=== PATIENT | female | born 1975 | race Caucasian/White ===

== ENCOUNTER 2018-02-18 14:19 | Inpatient (IN) | payer OTHER ==
[~2018-02-18] VITALS: Ht 152.4 cm; Wt 72.3 kg
--- NOTE | 2018-02-18 15:54 | RADIOLOGY REPORT ---
EXAMINATION: XR ANKLE, LEFT. XR FOOT, LEFT. CLINICAL INFORMATION: Pain status post surgery COMPARISON: None TECHNIQUE: 3 views of the left ankle. 3 views of the left foot. FINDINGS: Evidence of recent fibular plate and screw removal. No residual fracture line is evident. Soft tissue swelling and skin derrick overlie the lateral soft tissues. Ankle mortise appears preserved. There is a single screw traversing the medial malleolus. No residual fracture line is evident. No acute or degenerative findings of the left foot. No erosions. IMPRESSION: No suspicious osseous abnormalities.
[2018-02-18 15:56] LABS: ABSOLUTE BASOPHIL COUNT 0 /CUMM (0.0-0.2); ABSOLUTE EOSINOPHIL COUNT 0.2 /CUMM (0.0-0.7); ABSOLUTE GRANULOCYTE CT 7.8 /CUMM (1.4-6.5); ABSOLUTE LYMPH COUNT 2.3 /CUMM (1.2-3.4); ABSOLUTE MONOCYTE COUNT 0.4 /CUMM (0.10-0.60); BASOPHIL % 0.4 % (0.0-2.0); EOSINOPHIL % 1.7 % (0-5); HEMATOCRIT 37.5 % (37-47); MEAN CORPUSCULAR HGB 29.1 PG (27.0-31.0); MEAN CORPUSCULAR HGB CONC 33.3 G/DL (33.0-37.0); MEAN CORPUSCULAR VOLUME 87.4 FL (81.0-99.0); MEAN PLATELET VOLUME 9.1 FL (7.4-10.4); PLATELET COUNT 326 /CUMM (130-400); RBC DISTRIBUTION WIDTH 15.1 % (11.5-14.5); RED BLOOD CELL CT 4.29 /CUMM (4.20-5.40); WHITE BLOOD CELL COUNT 10.7 /CUMM (4.8-10.8)
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
[2018-02-18] MEDS ORDERED: GABAPENTIN600 M1 PO ×2 (18:48)
[2018-02-18] MEDS ORDERED: CYCLOBENZAPRINE10 M1 PO (18:49)
[2018-02-18] MEDS ORDERED: PANTOPRAZOLE SO40 M1 PO (18:49)
[2018-02-18] MEDS ORDERED: CLONAZEPAM0.5 M2 PO (18:49)
[2018-02-18] MEDS ORDERED: AMITRIPTYLINE100 M2 PO (18:50)
[2018-02-18] MEDS ORDERED: ZOLPIDEM TARTRA10 M1 PO (18:50)
[2018-02-18] MEDS ORDERED: REQUIP0.5 M1 PO (18:50)
[2018-02-18] MEDS ORDERED: MECLIZINE HCL25 MG PO (18:51)
[2018-02-18] MEDS ORDERED: CYMBALTA60 M1 PO (18:51)
[2018-02-18] MEDS ORDERED: GLUCOPHAGE1000 M1 PO (18:52)
[2018-02-18] MEDS ORDERED: ZOFRAN ODT8 M1 PO (18:52)
[2018-02-18] MEDS ORDERED: INSULIN SC (18:53)
[2018-02-18 22:56] VITALS: BP 120/66
--- NOTE | 2018-02-18 23:13 | History & Physical ---
Dallas Cruz 02/18/18 2313: General Information and HPI MD Statement: I have seen and personally examined URIEL TABARES and documented this H&P. The patient is a 42 year old F who presented with a patient stated chief complaint of [Left foot pain and infection post op 2 weeks]. Source of Information: patient Exam Limitations: no limitations History of Present Illness: Ms. Tabares is a 42-year-old female with past medical history of type II DM, hypertension, depression, fibromyalgia (no longer on pain medication), asthma, IBS, diverticulitis, endometriosis s/p hysterectomy, history of DVT (no longer on anticoagulation), left ankle fracture with surgical repair and hardware 3 years ago, presents to the ED with pain and swelling of her left ankle. She recently had hardware removed 2-1/[address] Velásquez, due to chronic pain in the ankle. She underwent removal of the plate and several screws and tolerated the procedure well. Since the procedure, she has been moving around women's shelters since being unable to work due to her ankle and had a brief hospitalization due to metabolic derangement after alcoholic binge drinking. Over this period she has been having serous discharge and more recently thicker yellow and purulent discharge from the wound site. She says she forgot to mention that she is allergic to dissolvable sutures. She denies any fever but does report chills, diaphoresis, diarrhea. She is on Zofran for chronic nausea. 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 Allergies/Medications Allergies: Coded Allergies: Iodinated Contrast- Oral and IV Dye (Severe, SHORT OF BREATH 02/18/18) erythromycin base (From ERYTHROCIN) (Intermediate, HIVES 02/18/18) ketorolac (From TORADOL) (Intermediate, FELT FUNNY 02/18/18) Antihistamines - Alkylamine (SOB, HALLUCINATIONS, DYSPNEA 02/18/18) Antihistamines - Ethanolamine (SOB, DYSPNEA, HALLUCINATIONS 02/18/18) Antihistamines - Ethylenediamine (SOB, DYSPNEA, HALLUCINATIONS 02/18/18) Antihistamines - Piperazine (SOB, DYSPNEA, HALLUCINATIONS 02/18/18) Antihistamines - Piperidine (SOB, DYSPNEA, HALLUCINATIONS 02/18/18) Penicillins (HIVES 02/18/18) Sulfa (Sulfonamide Antibiotics) (Intermediate, STOMACH UPSET 02/18/18) meperidine (From DEMEROL) (Intermediate, VOMITING 02/18/18) Past History Travel History Traveled to [place] past 21 day No Medical History Blood Transfusion Hx: Yes Neurological: migraine, vertigo EENT: allergies Cardiovascular: hypertension Respiratory: asthma Gastrointestinal: colitis, diverticulitis, GERD Hepatic: NONE Renal: NONE Musculoskeletal: fibromyalgia, osteoarthritis, rheumatoid arthritis, sciatica Psychiatric: anxiety, depression, PTSD Endocrine: diabetes Blood Disorders: DVT, LYME Cancer(s): NONE PATIENT SUPPORT ASSOCIATE/Reproductive: endometriosis History of MRSA: No History of VRE: No History of CDIFF: No Isolation History: Standard Surgical History Surgical History: RECENT ANKLE SURGERY Past Family/Social History Psychosocial History Where do you live? Other Smoking Status: Never Smoked ETOH Use: denies use Review of Systems Review of Systems Constitutional: Reports: chills, diaphoresis. Denies: fever. EENTM: Reports: no symptoms. Cardiovascular: Reports: no symptoms. Respiratory: Reports: no symptoms. GI: Reports: diarrhea, nausea. Genitourinary: Reports: no symptoms. Musculoskeletal: Reports: no symptoms. Skin: Reports: no symptoms. Neurological/Psychological: Reports: anxiety. Hematologic/Endocrine: Reports: no symptoms. Immunologic/Allergic: Reports: no symptoms. All Other Systems: Reviewed and Negative Exam & Diagnostic Data Last 24 Hrs of Vital Signs/I&O Vital Signs Date Time Temp Pulse Resp B/P B/P Pulse O2 O2 Flow FiO2 Mean Ox Delivery Rate 02/18 2256 98.8 96 18 120/66 97 02/18 2235 99.2 111 18 123/69 97 02/18 2020 97.2 96 18 105/60 97 02/18 1821 98.6 102 18 121/80 97 02/18 1504 97.6 108 16 101/71 97 Room Air Intake & Output 02/19 0800 07/ 0000 02/18 1600 Intake Total Output Total Balance Patient 158 lb Weight Weight Bed scale Measurement Method Physical Exam General Appearance Alert, Oriented X3, Cooperative, No Acute Distress Skin No Rashes Skin Temp/Moisture Exam: Warm/Dry Sepsis Skin Exam (color): Normal for Ethnicity HEENT Atraumatic, PERRLA, EOMI Neck Supple Cardiovascular Normal S1, Normal S2 Lungs Clear to Auscultation Abdomen Normal Bowel Sounds, Soft Neurological Normal Speech Extremities Normal Pulses Assessment/Plan Assessment: Ms. Tabares is a 42-year-old female with past medical history of type II DM, hypertension, depression, fibromyalgia (no longer on pain medication), asthma, IBS, diverticulitis, endometriosis s/p hysterectomy, history of DVT (no longer on anticoagulation), left ankle fracture with surgical repair and hardware 3 years ago, presents to the ED with pain and swelling of her left ankle. Afebrile, normal WBC, ESR 73, CRP >15, ankle is red, warm, and tender. Problem List: 1. Septic arthritis of the left ankle 2. Chronic Conditions (DM2, HTN, Depression, Anxiety, FM) 3. Hx of coagulopathy Plan - Admit to general medicine - Hold off antibiotics for now - ID and orthopedic consults - Blood cx - Pain pathway - Left LE doppler - Continue home medications - DVT PPx As Ranked By This Provider Problem List: 1. Wound infection after surgery 2. Pain 3. Depressed affect Core Measures/Misc (05/03) Acute Coronary Syndrome ACS Diagnosis: No Congestive Heart Failure Congestive Heart Failure Diagnosis No Cerebrovascular Accident CVA/TIA Diagnosis: No VTE (View Protocol) VTE Risk Factors Age>40 No Mechanical VTE Prophylaxis d/t N/A MechProphylax Ordered No VTE Pharm Prophylaxis d/t NA PharmProphylax ordered Sepsis (View protocol) Sepsis Present: No If YES complete Sepsis Event Note If YES complete Sepsis Event Note Jayson Rivera MD 02/19/18 0201: Core Measures/Misc (05/03) Sepsis (View protocol) If YES complete Sepsis Event Note If YES complete Sepsis Event Note Attending MD Review Statement Attending Statement Attending MD Statement: examined this patient, discuss w/resident/PA/APPLICATIONS PACKAGER, agreed w/resident/PA/APPLICATIONS PACKAGER, reviewed EMR data (avail) Attending Assessment/Plan: 42F PMH T2DM, depression, had left ankle fracture with surgical repair with hardware 3 years ago, most of the hardware removed 2.[address] Velásquez in [place] due to chronic pain in the ankle, and per that orthopedist, misplacement of the hardware, presents today with 1 day of severe left ankle pain, swelling, and erythema. Was hospitalized at [facility] last weekend for malnutrition and metabolic derangement. 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 She has a depressed affect, denies SI. She noted serosanguinous discharge from her surgical wound after the surgery which she kept clean and dry as she could, but has noticed a change in the color and character of the discharge, becoming thicker, and first yellow, then brown. She denies any systemic symptoms. She has a history of DVT but is not on anti-coagulation. Afebrile, normal WBC, ESR 73, CRP >15, ankle is red, warm, and tender. Concerning for septic joint. 1. Septic arthritis of the left ankle 2. History of left ankle surgery Plan - Admit to general medicine - Hold off antibiotics for now - ID and orthopedic consults - Blood cultures - Pain control - Left LE doppler - Continue home medications - DVT PPx Avani LAM,Vanesa 02/19/18 0220: General Information and HPI MD Statement: I have seen and personally examined SANIAURIEL and documented this H&P. The patient is a 42 year old F who presented with a patient stated chief complaint of [ankle pain]. Allergies/Medications Home Med list Amitriptyline HCl 100 MG TABLET 1 TAB PO QHS MENTAL HEALTH/SLEEP (Reported) Clonazepam 0.5 MG TABLET 1 TAB PO BID ANXIETY (Reported) Cyclobenzaprine HCl 10 MG TABLET 1 TAB PO TID MUSCLE SPASMS (Reported) Dicyclomine HCl 20 MG TABLET 1 TAB PO Q6P PRN GI (Reported) Duloxetine HCl (Cymbalta) 60 MG CAPSULE.DR 1 CAP PO QPM MENTAL HEALTH/NERVE PAIN (Reported) Gabapentin 600 MG TABLET 1,200 MG PO QAM NERVE PAIN (Reported) Gabapentin 600 MG TABLET 2,400 MG PO QPM NERVE PAIN (Reported) Meclizine HCl 25 MG TABLET 1 TAB PO AD PRN DIZZINESS (Reported) Metformin HCl (Glucophage) 1,000 MG TABLET 1 TAB PO BID DM (Reported) Ondansetron (Zofran Odt) 8 MG TAB.RAPDIS 1 TAB PO Q6H PRN N/V (Reported) place on top of the tongue where it will dissolve, then swallow Pantoprazole Sodium 40 MG TABLET.DR 1 TAB PO BID GI (Reported) Ropinirole Hydrochloride (Requip) 0.5 MG TABLET 1 TAB PO QHS RLS (Reported) Zolpidem Tartrate 10 MG TABLET 1 TAB PO QHS SLEEP (Reported) Core Measures/Misc (05/03) Sepsis (View protocol) If YES complete Sepsis Event Note If YES complete Sepsis Event Note Resident Review Statement Resident Statement: examined this patient, discussed with university internship, agreed with university internship, reviewed EMR data (avail), discussed with nursing Other Findings: Ms. Tabares is a 42-year-old lady with PMH significant for DVT, Lyme disease, sinus tachycardia with PVCs, fibromyalgia, NIDDM, HTN, colitis and depression presents with Pain around her ankle. Patient had an ankle surgery done 3 years ago and had hardware placed. The hardware was removed 2 weeks ago, and the patient tolerated the surgery well. She was in her usual state of health until Thursday when she started having pain in her left ankle, but got better and she was able to ambulate and perform her daily activities but yesterday after returning from grocery shopping the pain got extremely worse when she was barely able to walk because of the pain. She also mentions clear discharge from the surgical site which later turned yellow brown since yesterday. She did have some drainage from the surgical site right after the surgery but resolved on its own. Endorses calf tenderness. She also reports really bad diarrhea starting Thursday and resolved on its on by Thursday. She also has chronic abdominal pain and nausea and takes Zofran as needed at home. MAXIMUM TEMPERATURE of 99.1. Vitals on admission were temperature of 97.6, heart rate 108, respiratory rate 16, BP 101/71 and O2 sats and 7% on room air. She had no WBC white count and lactic acid level was 1.7 but had an ESR of 73 and CRP of 3.4. Ankle and foot x-ray were negative for any acute pathology. On exam she had extreme tenderness to palpation of right foot and ankle. Pain with active and Passive movement of left ankle. Surgical site was intact with no drainage noted. Problem List; 1. Left ankle Septic Arthritis 2. Chronic medical conditions - We'll admit the patient to general medicine floor - Patient received a dose of clindamycin in the ER. Hold off on antibiotics for now. - ID consult in a.m. - Ortho consultation - Follow-up blood cultures - Pain management - LLE Ext doppler to r/o DVT. - Continue home medications. DVT Prophylaxis; ALPS Patient is Full code.
--- NOTE | 2018-02-19 02:03 | Admission Certification ---
Admission Certification Certification Statement - As attending physician, I certify that at the time of - admission, based on clinical presentation, severity of - symptoms, need for further diagnostic testing and - therapeutic interventions, and risk of adverse outcomes - without in-hospital treatment, in my clinical assessment, - this patient requires an acute hospital stay for a minimum - of two nights or longer. I have also considered psychsocial - factors such as support system, advanced age, financial - issues, cognitive issues, and failed out-patient treatments, - past re-admission history, safety of patient, and lack of - compliance as applicable. Specific rationale supporting this admission is: Likely septic arthritis of the left ankle with hardware in place
[2018-02-19] MEDS ORDERED: DICYCLOMINE HCL20 M1 PO (02:07)
[2018-02-19 06:20] VITALS: BP 118/60
--- NOTE | 2018-02-19 08:00 | PN- Housestaff ---
See Addendum Subjective Follow-up For: POSSIBLE SEPTIC ARTHRITIS LEFT ANKLE Complaints: pain scale (0-10), 7-8/10 Subjective: Patient reports pain in left ankle at site of surgery. She states she thinks her derrick need to be removed. She has an appointment with Dr. Hurtado in [place] on February 22 for follow up post op (hardware removal February 02). She is currently living in a senior care and states she doesn't know how she will get to that appointment and wants derrick removed here, pain meds, and antibiotics. She states she was recently released from [facility] for electrolyte replacement and hydration after drinking alcohol and having vomiting. She states her left ankle started draining sero sanguinous fluid that became yellow in nature two days ago. She states temp at home has been 99.1. She also reports calf pain with squeezing. She has been doing her own wound care consisting of a gauze pad changing PRN. Denies chills, n/v/d, chest pain, SOB. Review of Systems Constitutional: Reports: see HPI. Objective Last 24 Hrs of Vital Signs/I&O Vital Signs Date Time Temp Pulse Resp B/P B/P Pulse O2 O2 Flow FiO2 Mean Ox Delivery Rate 02/19 0620 98.4 87 18 118/60 95 Room Air 02/18 2256 98.8 96 18 120/66 97 07/05 2235 99.2 111 18 123/69 97 07/ 2020 97.2 96 18 105/60 97 07/05 1821 98.6 102 18 121/80 97 07/05 1504 97.6 108 16 101/71 97 Room Air Intake & Output 02/19 1600 02/19 0800 07 0000 Intake Total 0 Output Total 950 Balance -950 Intake, Oral 0 Number 0 Bowel Movements Output, Urine 950 Patient 158 lb Weight Weight Bed scale Measurement Method Physical Exam General Appearance: Alert, Oriented X3, Cooperative, No Acute Distress, obese Skin: No Rashes, No Breakdown Skin Temp/Moisture Exam: Warm/Dry HEENT: Atraumatic, PERRLA Neck: Supple Cardiovascular: Regular Rate, Normal S1, Normal S2 Lungs: Clear to Auscultation, Normal Air Movement Abdomen: Normal Bowel Sounds, Soft, No Tenderness, obese Neurological: Normal Tone, Sensation Intact Extremities: Normal Pulses, Left lateral malleolus with surgical scar-derrick in place with minimal erythema. Not warm to touch. DP 2+. sensory intact left foot. Limited ROM 2/2 surgery. Vascular: Normal Pulses, Pulses Symmetrical Assessment/Plan Assessment: 42 y.o female PMH type 2 DM, HTN, depression, fibromyalgia, asthma, IBS, h/o DVT (no longer on anticoagulation, left ankle fx s/p surgical repair and revision most recently February 02 who was admitted for possible septic arthritis of left ankle. #Possible septic arthritis left ankle-this is unlikely given that she is afebrile/no leukocytosis/ and the surgical site is intact and free from drainage. I spoke to Dr. Interiano who performed the surgery. He relayed he saw the patient on February 11 and the wound looked healed. He had no concern for infection at that time. He decided to leave the derrick for an additional 10days just to ensure closure and she has a -continue off abx for now. Will re assess for need of abx post MRI. -ID consulted: recommends MRI; evaluation for osteomyelitis -ortho consulted: agrees surgical site looks healed and free from infection. Will not remove derrick as patient needs to keep her follow up appointment with her primary surgeon on February 22. #Chronic illness -continue medications -holding Gapapentin until large dose confirmed with her pharmacy #Social issues -Will need case management to assist with coordination to senior care/if bed still available -Patient making very specific narcotic medication requests and dosages DVT prophylaxis: alps/lovenox Problem List: 1. Pain Pain Ratin Pain Location: left ankle Pain Goal: Pain 4 or less Pain Plan: see a/p Tomorrow's Labs & Rationales: cbc, bep
--- NOTE | 2018-02-19 08:56 | Cons- Orthopedic ---
General Information and HPI Consulting Request Date of Consult: 02/19/18 Requested By: Sammy Vides MD History of Present Illness: 42 yr old female with left ankle pain and swelling. patient had hardware removed from her left ankle 2 1/[address] Hurtado in [place]. Patient has appt on thursday with dr hurtado for staple removal. has clindamycin at home. ankle was swollen and red over a day ago with some drainage. Patient in a detention did not contact Dr Hamlin office just presented to ER. Patient was started on IV antibiotics yesterday and has resolved the swelling. Patient is afebrile and normal wbc. Allergies/Medications Allergies: Coded Allergies: Iodinated Contrast- Oral and IV Dye (Severe, SHORT OF BREATH 02/18/18) erythromycin base (From ERYTHROCIN) (Intermediate, HIVES 02/18/18) ketorolac (From TORADOL) (Intermediate, FELT FUNNY 02/18/18) Antihistamines - Alkylamine (SOB, HALLUCINATIONS, DYSPNEA 02/18/18) Antihistamines - Ethanolamine (SOB, DYSPNEA, HALLUCINATIONS 02/18/18) Antihistamines - Ethylenediamine (SOB, DYSPNEA, HALLUCINATIONS 02/18/18) Antihistamines - Piperazine (SOB, DYSPNEA, HALLUCINATIONS 02/18/18) Antihistamines - Piperidine (SOB, DYSPNEA, HALLUCINATIONS 02/18/18) Penicillins (HIVES 02/18/18) Sulfa (Sulfonamide Antibiotics) (Intermediate, STOMACH UPSET 02/18/18) meperidine (From DEMEROL) (Intermediate, VOMITING 02/18/18) Home Med List: Amitriptyline HCl 100 MG TABLET 1 TAB PO QHS MENTAL HEALTH/SLEEP (Reported) Clonazepam 0.5 MG TABLET 1 TAB PO BID ANXIETY (Reported) Cyclobenzaprine HCl 10 MG TABLET 1 TAB PO TID MUSCLE SPASMS (Reported) Dicyclomine HCl 20 MG TABLET 1 TAB PO Q6P PRN GI (Reported) Duloxetine HCl (Cymbalta) 60 MG CAPSULE. 1 CAP PO QPM MENTAL HEALTH/NERVE PAIN (Reported) Gabapentin 600 MG TABLET 1,200 MG PO QAM NERVE PAIN (Reported) Gabapentin 600 MG TABLET 2,400 MG PO QPM NERVE PAIN (Reported) Meclizine HCl 25 MG TABLET 1 TAB PO AD PRN DIZZINESS (Reported) Metformin HCl (Glucophage) 1,000 MG TABLET 1 TAB PO BID DM (Reported) Ondansetron (Zofran Odt) 8 MG TAB.RAPDIS 1 TAB PO Q6H PRN N/V (Reported) place on top of the tongue where it will dissolve, then swallow Pantoprazole Sodium 40 MG TABLET.DR 1 TAB PO BID GI (Reported) Ropinirole Hydrochloride (Requip) 0.5 MG TABLET 1 TAB PO QHS RLS (Reported) Zolpidem Tartrate 10 MG TABLET 1 TAB PO QHS SLEEP (Reported) Past History Medical History Blood Transfusion Hx: Yes Neurological: migraine, vertigo EENT: allergies Cardiovascular: hypertension Respiratory: asthma Gastrointestinal: colitis, diverticulitis, GERD Hepatic: NONE Renal: NONE Musculoskeletal: fibromyalgia, osteoarthritis, rheumatoid arthritis, sciatica Psychiatric: anxiety, depression, PTSD Endocrine: diabetes Blood Disorders: DVT, LYME Cancer(s): NONE [employer]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 Other Smoking Status: Never Smoked ETOH Use: denies use Review of Systems Review of Systems: see chart Exam & Diagnostic Data Vital Signs and I&O Vital Signs Date Time Temp Pulse Resp B/P B/P Pulse O2 O2 Flow FiO2 Mean Ox Delivery Rate 02/19 0620 98.4 87 18 118/60 95 Room Air 02/18 2256 98.8 96 18 120/66 97 /05 2235 99.2 111 18 123/69 97 / 2020 97.2 96 18 105/60 97 / 1821 98.6 102 18 121/80 97 /05 1504 97.6 108 16 101/71 97 Room Air Intake & Output 02/19 1600 02/19 0800 / 0000 02/18 1600 02/18 0800 02/18 0000 Intake Total 0 Output Total 950 Balance -950 Intake, Oral 0 Number 0 Bowel Movements Output, Urine 950 Patient 158 lb Weight Weight Bed scale Measurement Method Physical Exam: mild edema over surgical wound. there is no erythema and no discharge from surgical wound site. 10 degrees of dorsi flexion and 40 degrees of volar flexion. foot is n/v intact. WBC is normal and patient is afebrile. Assessment/Plan Assessment/Plan s/p left ankle hardware removal 2 1/2 weeks post-op -discussed with dr nolan. Patient has appt on thursday to see dr hurtado for staple removal. Would leave derrick in until her f/u appt. -There is no evidence of septic joint. There appears to be no active signs of surgical infection. -Continuing care should contact patients social/rn case manager hospice at detention facility to arrange for her to get to her post-op appt with dr hurtado on thursday. Consult Acknowledgment - Thank you for your consult request.
[2018-02-19 08:58] LABS: ABSOLUTE BASOPHIL COUNT 0 /CUMM (0.0-0.2); ABSOLUTE EOSINOPHIL COUNT 0.2 /CUMM (0.0-0.7); ABSOLUTE GRANULOCYTE CT 3.1 /CUMM (1.4-6.5); ABSOLUTE LYMPH COUNT 3.4 /CUMM (1.2-3.4); ABSOLUTE MONOCYTE COUNT 0.4 /CUMM (0.10-0.60); BASOPHIL % 0.6 % (0.0-2.0); EOSINOPHIL % 3.4 % (0-5); GRANULOCYTE % 43.1 % (42.2-75.2); HEMATOCRIT 33.1 % (37-47); MEAN CORPUSCULAR HGB 29.1 PG (27.0-31.0); MEAN CORPUSCULAR HGB CONC 32.8 G/DL (33.0-37.0); MEAN CORPUSCULAR VOLUME 88.5 FL (81.0-99.0); MEAN PLATELET VOLUME 9.3 FL (7.4-10.4); PLATELET COUNT 253 /CUMM (130-400); RBC DISTRIBUTION WIDTH 15.2 % (11.5-14.5); RED BLOOD CELL CT 3.74 /CUMM (4.20-5.40); WHITE BLOOD CELL COUNT 7.3 /CUMM (4.8-10.8)
--- NOTE | 2018-02-19 11:10 | Cons- Infect Disease ---
General Information and HPI Consulting Request Date of Consult: 02/19/18 Requested By: Sammy Vides MD Reason for Consult: Left ankle inflammation Source of Information: patient History of Present Illness: This is a 42-year-old woman with a history of diabetes, hypertension, asthma, DVT, no longer on anticoagulation, irritable bowel syndrome, fibromyalgia, endometriosis and depression, status post ORIF of the left ankle 3 years prior to admission after trauma, with chronic pain secondary to what she was told was poor positioning of the hardware, status post removal of most of the hardware from her left ankle (with a medial malleolar screw left in place) 2 1/2 weeks prior to admission by her orthopedist, Dr. Velásquez, at [facility], with intermittent drainage since then, initially serosanguineous but, more recently, yellow to brown, admitted on February 18 after presenting to the emergency room with increasing pain in the ankle, associated with erythema, edema and increasing drainage, with no associated fevers or chills. On admission she was afebrile. Laboratory data revealed a white blood cell count of 10.7, ESR 73, BUN/ creatinine 10 and 0.6, with normal liver enzymes. X-ray of the left foot and ankle revealed soft tissue swelling overlying the lateral soft tissues and a single screw traversing the medial malleolus, with no bony erosions. She was given 1 dose of IV Clindamycin and then followed off antibiotics. She has remained afebrile since admission but continues to complain of pain in the left ankle. Allergies/Medications Allergies: Coded Allergies: Iodinated Contrast- Oral and IV Dye (Severe, SHORT OF BREATH 02/18/18) erythromycin base (From ERYTHROCIN) (Intermediate, HIVES 02/18/18) ketorolac (From TORADOL) (Intermediate, FELT FUNNY 02/18/18) Antihistamines - Alkylamine (SOB, HALLUCINATIONS, DYSPNEA 02/18/18) Antihistamines - Ethanolamine (SOB, DYSPNEA, HALLUCINATIONS 02/18/18) Antihistamines - Ethylenediamine (SOB, DYSPNEA, HALLUCINATIONS 02/18/18) Antihistamines - Piperazine (SOB, DYSPNEA, HALLUCINATIONS 02/18/18) Antihistamines - Piperidine (SOB, DYSPNEA, HALLUCINATIONS 02/18/18) Penicillins (HIVES 02/18/18) Sulfa (Sulfonamide Antibiotics) (Intermediate, STOMACH UPSET 02/18/18) meperidine (From DEMEROL) (Intermediate, VOMITING 02/18/18) Home Med List: Amitriptyline HCl 100 MG TABLET 1 TAB PO QHS MENTAL HEALTH/SLEEP (Reported) Clonazepam 0.5 MG TABLET 1 TAB PO BID ANXIETY (Reported) Cyclobenzaprine HCl 10 MG TABLET 1 TAB PO TID MUSCLE SPASMS (Reported) Dicyclomine HCl 20 MG TABLET 1 TAB PO Q6P PRN GI (Reported) Duloxetine HCl (Cymbalta) 60 MG CAPSULE.DR 1 CAP PO QPM MENTAL HEALTH/NERVE PAIN (Reported) Gabapentin 600 MG TABLET 1,200 MG PO QAM NERVE PAIN (Reported) Gabapentin 600 MG TABLET 2,400 MG PO QPM NERVE PAIN (Reported) Meclizine HCl 25 MG TABLET 1 TAB PO AD PRN DIZZINESS (Reported) Metformin HCl (Glucophage) 1,000 MG TABLET 1 TAB PO BID DM (Reported) Ondansetron (Zofran Odt) 8 MG TAB.RAPDIS 1 TAB PO Q6H PRN N/V (Reported) place on top of the tongue where it will dissolve, then swallow Pantoprazole Sodium 40 MG TABLET.DR 1 TAB PO BID GI (Reported) Ropinirole Hydrochloride (Requip) 0.5 MG TABLET 1 TAB PO QHS RLS (Reported) Zolpidem Tartrate 10 MG TABLET 1 TAB PO QHS SLEEP (Reported) Past History Travel History Traveled to [place] past 21 day No Medical History Blood Transfusion Hx: Yes Neurological: migraine, vertigo EENT: allergies Cardiovascular: hypertension Respiratory: asthma Gastrointestinal: colitis, diverticulitis, GERD, irritable bowel syndrome Hepatic: NONE Renal: NONE Musculoskeletal: fibromyalgia, osteoarthritis, rheumatoid arthritis, sciatica Psychiatric: anxiety, depression, PTSD Endocrine: diabetes Blood Disorders: DVT Cancer(s): NONE 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 Other Smoking Status: Never Smoked ETOH Use: denies use Review of Systems Review of Systems All Other Systems: Reviewed and Negative Exam & Diagnostic Data Last 24 Hrs of Vital Signs/I&O Vital Signs Date Time Temp Pulse Resp B/P B/P Pulse O2 O2 Flow FiO2 Mean Ox Delivery Rate 07/06 06 98.4 87 18 118/60 95 Room Air 02/18 2256 98.8 96 18 120/66 97 02/18 2235 99.2 111 18 123/69 97 02/18 2020 97.2 96 18 105/60 97 02/18 1821 98.6 102 18 121/80 97 07/05 1504 97.6 108 16 101/71 97 Room Air Intake & Output 02/19 1600 02/19 0800 02/19 0000 Intake Total 0 Output Total 950 Balance -950 Intake, Oral 0 Number 0 Bowel Movements Output, Urine 950 Patient 158 lb Weight Weight Bed scale Measurement Method Physical Exam Other Physical Findings: She is awake and alert in no acute distress. She is afebrile. Skin reveals no rash. HEENT exam is negative. Neck is supple with no adenopathy. Lungs are clear. Heart regular rhythm with no murmur. Abdomen is soft, nontender with positive bowel sounds. Back no CVA tenderness. Extremities left ankle swelling , with mild erythema along the lateral incision, with derrick in place, with no active drainage; warm and tender to touch. Neuro is without focality. Last 24 Hours of Lab Results: Laboratory Tests 02/19 02/18 0705 1811 Chemistry Sodium (137 - 145 mmol/L) 143 Potassium (3.5 - 5.1 mmol/L) 3.8 Chloride (98 - 107 mmol/L) 100 Carbon Dioxide (22 - 30 mmol/L) 33 H Anion Gap (5 - 16) 9 BUN (7 - 17 mg/dL) 10 Creatinine (0.5 - 1.0 mg/dL) 0.6 Estimated GFR (>60 ml/min) > 60 BUN/Creatinine Ratio (7 - 25 %) 16.7 Lactic Acid Cancelled Hematology CBC w Diff NO MAN DIFF REQ WBC (4.8 - 10.8 /CUMM) 7.3 RBC (4.20 - 5.40 /CUMM) 3.74 L Hgb (12.0 - 16.0 G/DL) 10.9 L Hct (37 - 47 %) 33.1 L MCV (81.0 - 99.0 FL) 88.5 MCH (27.0 - 31.0 PG) 29.1 MCHC (33.0 - 37.0 G/DL) 32.8 L RDW (11.5 - 14.5 %) 15.2 H Plt Count (130 - 400 /CUMM) 253 MPV (7.4 - 10.4 FL) 9.3 Gran % (42.2 - 75.2 %) 43.1 Lymphocytes % (20.5 - 51.1 %) 46.8 Monocytes % (1.7 - 9.3 %) 6.1 Eosinophils % (0 - 5 %) 3.4 Basophils % (0.0 - 2.0 %) 0.6 Absolute Granulocytes (1.4 - 6.5 /CUMM) 3.1 Absolute Lymphocytes (1.2 - 3.4 /CUMM) 3.4 Absolute Monocytes (0.10 - 0.60 /CUMM) 0.4 Absolute Eosinophils (0.0 - 0.7 /CUMM) 0.2 Absolute Basophils (0.0 - 0.2 /CUMM) 0 07 1532 Chemistry Sodium (137 - 145 mmol/L) 141 Potassium (3.5 - 5.1 mmol/L) 3.9 Chloride (98 - 107 mmol/L) 96 L Carbon Dioxide (22 - 30 mmol/L) 32 H Anion Gap (5 - 16) 13 BUN (7 - 17 mg/dL) 10 Creatinine (0.5 - 1.0 mg/dL) 0.6 Estimated GFR (>60 ml/min) > 60 BUN/Creatinine Ratio (7 - 25 %) 16.7 Glucose (65 - 99 mg/dL) 191 H Lactic Acid (0.7 - 2.1 mmol/L) 1.7 Calcium (8.4 - 10.2 mg/dL) 9.4 Total Bilirubin (0.2 - 1.3 mg/dL) 0.2 AST (14 - 36 U/L) 27 ALT (9 - 52 U/L) 32 Alkaline Phosphatase (<127 U/L) 125 C-Reactive Prot, Quant (<1.0 mg/dL) 3.4 H Total Protein (6.3 - 8.2 g/dL) 7.3 Albumin (3.5 - 5.0 g/dL) 4.1 Globulin (1.9 - 4.2 gm/dL) 3.2 Albumin/Globulin Ratio (1.1 - 2.2 %) 1.3 Hematology CBC w Diff NO MAN DIFF REQ WBC (4.8 - 10.8 /CUMM) 10.7 RBC (4.20 - 5.40 /CUMM) 4.29 Hgb (12.0 - 16.0 G/DL) 12.5 Hct (37 - 47 %) 37.5 MCV (81.0 - 99.0 FL) 87.4 MCH (27.0 - 31.0 PG) 29.1 MCHC (33.0 - 37.0 G/DL) 33.3 RDW (11.5 - 14.5 %) 15.1 H Plt Count (130 - 400 /CUMM) 326 MPV (7.4 - 10.4 FL) 9.1 Gran % (42.2 - 75.2 %) 73.0 Lymphocytes % (20.5 - 51.1 %) 21.6 Monocytes % (1.7 - 9.3 %) 3.3 Eosinophils % (0 - 5 %) 1.7 Basophils % (0.0 - 2.0 %) 0.4 Absolute Granulocytes (1.4 - 6.5 /CUMM) 7.8 H Absolute Lymphocytes (1.2 - 3.4 /CUMM) 2.3 Absolute Monocytes (0.10 - 0.60 /CUMM) 0.4 Absolute Eosinophils (0.0 - 0.7 /CUMM) 0.2 Absolute Basophils (0.0 - 0.2 /CUMM) 0 ESR Westergren (0 - 20 MM) 73 H Last 24 Hours of Kenan Results: Blood cultures 2 February 18 negative Diagnostic Data Recent Imaging Findings: X-ray of the left foot and ankle February 18 reveals soft tissue swelling overlying the lateral soft tissues and a single screw traversing the medial malleolus, with no bony erosions. Assessment/Plan Assessment/Plan Impression: This is a 42-year-old woman status post ORIF of the left ankle 3 years prior to admission after trauma, status post removal of most of the hardware from her left ankle (with a medial malleolar screw left in place) 2 1/2 weeks prior to admission because of chronic pain admitted on February 18 with intermittent drainage over the past 2 weeks, with increasing pain, swelling and erythema of the ankle over the past several days, found to be afebrile with a mild leukocytosis and an elevated ESR. She does appear to have inflammation involving the lateral aspect of her left ankle, raising concern for infection and, given her recent surgery, the possibility of underlying osteomyelitis must be considered. She will need further evaluation for this, but she should be followed off antibiotics as, if osteomyelitis is confirmed on imaging, she will require a bone biopsy, which will need to be done off antibiotics. As her surgery was done at [facility] it may be preferable to further evaluate her there so that her orthopedist can be involved. Suggestion: 1. Would consider transfer to [facility] to the care of her orthopedist 2. Will need an MRI of the left ankle (which could be done at [facility] if she is transferred there) 3. Would follow off antibiotics pending above Consult Acknowledgment - Thank you for your consult request.
--- NOTE | 2018-02-19 12:11 | ULTRASOUND REPORT ---
EXAMINATION: LEFT LOWER EXTREMITY DEEP VENOUS ULTRASOUND CLINICAL INFORMATION: Left lower extremity pain and swelling. History of recent surgery. COMPARISON: None. TECHNIQUE: Duplex Doppler imaging with compression maneuvers were performed of the left lower extremity deep venous system. FINDINGS: The visualized common femoral, femoral and popliteal veins demonstrate normal compressibility and color flow without evidence of venous thrombosis. Visualized portions of the calf veins demonstrate normal color fill-in suggesting patency. There is no evidence of a Hidalgo's cyst. IMPRESSION: No evidence of deep venous thrombosis involving the left lower extremity.
[2018-02-19 14:30] VITALS: BP 110/70
--- NOTE | 2018-02-19 17:27 | MRI REPORT ---
EXAMINATION: MR ANKLE WITH CONTRAST, LEFT CLINICAL INFORMATION: 42-year-old female with redness and pain of left ankle. Evaluate for osteomyelitis. COMPARISON: Ankle and foot radiographs from 02/18/2018. TECHNIQUE: MR images of the left ankle were obtained on a high-field 1.5 Zohra magnet prior to and following intravenous administration of 7.5 mL of Gadavist contrast material. FINDINGS: The Achilles tendon is normal. The peroneal, flexor, extensor and tibialis tendons are intact. No evidence of tendon tear or tenosynovitis. Magnetic susceptibility artifact is produced by the medial malleolar fixation screw. Lateral fixation plate and screws have been removed from the distal fibula. The posterior tibiofibular syndesmotic ligament is intact. There appears to be focal heterotopic ossification of the anteroinferior tibiofibular ligament. There is mild thickening of the anterior talofibular ligament without evidence of focal ligament disruption. The calcaneofibular and posterior talofibular ligaments are unremarkable. The deltoid ligaments are suboptimally evaluated due to the metallic artifact. The talar dome is well-positioned within the ankle mortise. Small ankle joint effusion is present. There appears to be a small, 0.3 cm long focus of osteochondral injury of the calcaneus at the posterior facet of the subtalar joint. Small focus of cystlike signal change is seen within the mid calcaneus at the angle of Gissane. There is a very small, subacute fracture of the cuboid at the margin of the calcaneocuboid joint with mild subarticular marrow edema in this region. Bones have normal alignment at the Chopart and Lisfranc joints. Plantar aponeurosis is intact. The fat planes of the sinus tarsi and tarsal canal are maintained. 0.6 x 1.7 x 1.2 cm fluid collection overlies the lateral malleolus. There is edema of subcutaneous tissues of the lateral ankle and dorsolateral foot. The subcutaneous tissues exhibit a reticular pattern of enhancement after contrast administration. These findings are suggestive of cellulitis. Mild edema is present within the fibular malleolus. The fatty marrow signal intensity within the distal fibula is generally well preserved. No focal osseous erosion or periostitis. No intramedullary abscess. IMPRESSION: 1. No MR imaging evidence of osteomyelitis or intramedullary abscess. 2. A 0.6 x 1.7 x 1.2 cm fluid collection overlies the lateral malleolus. This could represent a postoperative fluid collection or small abscess. 3. There is edema and reticular pattern of contrast enhancement of subcutaneous tissues of the lateral ankle and dorsolateral foot, consistent with cellulitis. 4. Small area of osteochondral injury of the posterior facet of the subtalar joint. Also, there is a very small cuboid fracture at the margin of the calcaneocuboid joint.
[2018-02-19 22:27] VITALS: BP 100/70
[2018-02-20 06:35] VITALS: BP 100/70
--- NOTE | 2018-02-20 11:23 | PN- Housestaff ---
Laly Gorman 02/20/18 1118: Subjective Follow-up For: Yanira ankle cellulitis Complaints: pain and swelling in left ankle Subjective: Patient seen and exaimned at bedside. C/o pain and swelling in the left ankle, patient states she has a headache because nobody will give her her gabapentin. Patient states she needs to go home today because she lives in a homeless intermediate and fearful that they will give her bed away, states "im going home today one way or another". Review of Systems Constitutional: Denies: chills, diaphoresis, fever. Cardiovascular: Denies: chest pain, palpitations. Respiratory: Denies: cough, orthopnea, short of breath. Gastrointestinal: Denies: abdominal pain, constipation, diarrhea, nausea, vomiting. Objective Last 24 Hrs of Vital Signs/I&O Vital Signs Date Time Temp Pulse Resp B/P B/P Pulse O2 O2 Flow FiO2 Mean Ox Delivery Rate 02/20 0635 98.8 87 20 100/70 92 Room Air 02/19 2227 98.9 87 18 100/70 92 02/19 1430 98.3 84 18 110/70 97 Intake & Output 02/20 1600 02/20 0800 02/20 0000 Intake Total 100 120 Output Total 600 500 Balance -500 -380 Intake, Oral 100 120 Output, Urine 600 500 Physical Exam General Appearance: Alert, Oriented X3, Cooperative Skin: No Rashes Sepsis Skin Exam (color): Normal for Ethnicity HEENT: Atraumatic, PERRLA, EOMI Neck: Supple, No LAD Cardiovascular: Regular Rate (Tachycardiac), Normal S1, Normal S2 Lungs: Clear to Auscultation, Normal Air Movement Abdomen: Normal Bowel Sounds, Soft, No Tenderness Neurological: Normal Speech Extremities: Normal Pulses, Left ankle has derrick, minimal erythema surrounding derrick. Tender to touch, no warmth or discharge appreciated. Assessment/Plan Assessment: #Left Ankle Cellulitis Patient is afebrile, normal WBC, Elevated ESR, CRP >15. -MRI negative for Osteomyelitis, +ve for cellulitis -ortho consulted: agrees surgical site looks healed and free from infection. Will not remove derrick as patient needs to keep her follow up appointment with her primary surgeon on February 22. #Chronic illness -continue medications -holding Gapapentin until large dose confirmed with her pharmacy #Social issues -Will need case management to assist with coordination to intermediate/if bed still available -Patient making very specific narcotic medication requests and dosages DVT prophylaxis: alps/lovenox Problem List: 1. Cellulitis Pain Ratin Pain Location: Left ANkle Pain Goal: Remain pain free Pain Plan: Tylenol Tomorrow's Labs & Rationales: none DVT/Prophylaxis: pharmacological Nicole LAMJayson 02/20/18 1805: Attending MD Review Statement Attending Statement Attending MD Statement: examined this patient, discuss w/resident/PA/SENIOR CLINICAL DATA COORDINATOR, agreed w/resident/PA/SENIOR CLINICAL DATA COORDINATOR, reviewed EMR data (avail) Attending Assessment/Plan: 42F PMH T2DM, depression, had left ankle fracture with surgical repair with hardware 3 years ago, most of the hardware removed 2.[address] Velásquez in [place] due to chronic pain in the ankle, and per that orthopedist, misplacement of the hardware, presents today with 1 day of severe left ankle pain, swelling, and erythema. Was hospitalized at [facility] last weekend for malnutrition and metabolic derangement. 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 She has a depressed affect, denies SI. She noted serosanguinous discharge from her surgical wound after the surgery which she kept clean and dry as she could, but has noticed a change in the color and character of the discharge, becoming thicker, and first yellow, then brown. She denies any systemic symptoms. She has a history of DVT but is not on anti-coagulation. Afebrile, normal WBC, ESR 73, CRP >15, ankle is red, warm, and tender. Concerning for septic joint. Ankle appears improved today. There is less swelling and erythema. Pain is improved. Afebrile, stable vitals. MRI shows small fluid collection but no definitive osteomyelitis. 1. Left ankle cellulitis 2. History of left ankle surgery Plan - Stable for discharge - No antibiotics on discharge - Will see her orthopedist on Thursday for follow up - Pain control - Continue home medications
[2018-02-20 14:34] VITALS: BP 130/70
--- NOTE | 2018-02-20 16:31 | Patient Discharge Instructions ---
Discharge Instructions General Discharge Information Special Instructions: PLEASE FOLLOW UP WITH YOUR ORTHOPEDIC DOCTOR ON THURSDAY Acute Coronary Syndrome Inclusion Criteria At DC or during hospital stay patient has or had the following: ACS DIAGNOSIS No Discharge Core Measures Meds if any: Prescribed or Continued at Discharge Meds if any: NOT Prescribed or Continued at Discharge Congestive Heart Failure Inclusion Criteria At DC or during hospital stay patient has or had the following: CHF DIAGNOSIS No Discharge Core Measures Meds if any: Prescribed or Continued at Discharge Meds if any: NOT Prescribed or Continued at Discharge Cerebrovascular accident Inclusion Criteria At DC or during hospital stay patient has or had the following: CVA/TIA Diagnosis No Discharge Core Measures Meds if any: Prescribed or Continued at Discharge Meds if any: NOT Prescribed or Continued at Discharge Venous thromboembolism Inclusion Criteria VTE Diagnosis No VTE Type NONE VTE Confirmed by (Test) NONE Discharge Core Measures - Per Current guidelines, there needs to be overlap - treatment for the first 5 days of Warfarin therapy. - If discharged on Warfarin prior to 5 days of - overlap therapy, the patient will need to be - assessed for post discharge needs including - *Post discharge parental anticoagulation - *Warfarin and/or parental anticoagulation education - *Follow up date to check INR post discharge At least 5 days overlap therapy as Inpatient No Meds if any: Prescribed or Continued at Discharge Note: Overlap Therapy is Warfarin and Anticoagulant Meds if any: NOT Prescribed or Continued at Discharge
--- NOTE | 2018-02-20 17:51 | PN- Infect Dx ---
Subjective Subjective: This patient is a 42-year-old woman status post ORIF of the left ankle 3 years prior to admission after trauma, status post removal of most of the hardware from her left ankle (with a medial malleolar screw left in place) 2 1/2 weeks prior to admission because of chronic pain admitted on February 18 with intermittent drainage over the past 2 weeks, with increasing pain, swelling and erythema of the ankle over the past several days, found to be afebrile with a mild leukocytosis and an elevated ESR. She continues with pain brought her temperature is normal and her white blood cell count has decreased to 7.3. . Review of Systems Comments: 12 point review of systems only positive noted is pain in the ankle. Objective Last 24 Hrs of Vital Signs/I&O Vital Signs Date Time Temp Pulse Resp B/P B/P Pulse O2 O2 Flow FiO2 Mean Ox Delivery Rate 02/20 1434 98.6 73 21 130/70 98 02/20 0635 98.8 87 20 100/70 92 Room Air 02/19 2227 98.9 87 18 100/70 92 Intake & Output 02/20 1600 02/20 0800 02/20 0000 Intake Total 720 100 120 Output Total 600 500 Balance 720 -500 -380 Intake, Oral 720 100 120 Number 0 Bowel Movements Output, Urine 600 500 Physical Exam Other Physical Findings: Awake alert oriented 3 Pupils equal reactive to light and accommodation Neck supple no JVD no lymphadenopathy Lungs clear to auscultation bilaterally Heart regular rate rhythm S1-S2 Abdomen soft nontender nondistended Lower extremity wound site shows minimal erythema around the scar and some mild discharge. No collections noted nor significant cellulitis. Results Last 24 Hours of Lab Results: Microbiology Date/Time Procedure - Status Source Growth 02/18 175 Blood Culture - RES BLOOD 02/18 153 Blood Culture - RES BLOOD Last 24 Hours of Kenan Results: No new tests Assessment/Plan ID Impression: This is a 42-year-old woman status post ORIF of the left ankle 3 years prior to admission after trauma, status post removal of most of the hardware from her left ankle (with a medial malleolar screw left in place) 2 1/2 weeks prior to admission because of chronic pain admitted on February 18 with intermittent drainage over the past 2 weeks, with increasing pain, swelling and erythema of the ankle over the past several days, found to be afebrile with a mild leukocytosis and an elevated ESR. She will need further evaluation but she should be followed off antibiotics. The patient will be discharged today with a outpatient follow-up Thursday morning at [facility]. Suggestion: 1. Follow-up antibiotics 2. Quick follow-up with orthopedics at [facility]
== END 2018-02-20 18:00 | DRG 721 ==
LOC: ERH 14:19 → ERHI 21:34 → 2NA 21:34 → ENRESERV 22:11 → 2NA 22:44 → ENTRNSPT 02-20 17:48 → EDTRNSPT 02-20 17:54 → EDTRNSPTSTS 02-20 17:54 → 2NA 02-20 18:00 → CMPTRNSPT 02-20 18:17
PROVIDERS: Internal Medicine; Physician Assistant Medical
DX: T81.4XXA Infection following a procedure, initial encounter (principal); M00.9 Pyogenic arthritis, unspecified; M25.572 Pain in left ankle and joints of left foot; Z98.890 Other specified postprocedural states; E11.9 Type 2 diabetes mellitus without complications; Z79.84 Long term (current) use of oral hypoglycemic drugs; E87.3 Alkalosis; Z86.718 Personal history of other venous thrombosis and embolism; I10 Essential (primary) hypertension; M79.7 Fibromyalgia; J45.909 Unspecified asthma, uncomplicated; K58.9 Irritable bowel syndrome, unspecified; K21.9 Gastro-esophageal reflux disease without esophagitis; L03.116 Cellulitis of left lower limb; R51 Headache
CPT/HCPCS: 2NASP; 75619; 36592; 73610-LT; 73630-LT; 82436; 87040; 93005; 93010; 96361; 96374; 96375; A9579; J1650; J2405; J3101

== ENCOUNTER 2018-02-23 22:56 | Inpatient (IN) | payer OTHER ==
[~2018-02-23] VITALS: Ht 152.4 cm; Wt 72.6 kg
[~2018-02-23 22:56] MED LIST: AMITRIPTYLINE100 M2 PO; CLONAZEPAM0.5 M2 PO; CYCLOBENZAPRINE10 M1 PO; CYMBALTA60 M1 PO; DICYCLOMINE HCL20 M1 PO; GABAPENTIN600 M1 PO; GLUCOPHAGE1000 M1 PO; INSULIN SC; MECLIZINE HCL25 MG PO; PANTOPRAZOLE SO40 M1 PO; REQUIP0.5 M1 PO; ZOFRAN ODT8 M1 PO; ZOLPIDEM TARTRA10 M1 PO
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
[2018-02-24 00:27] LABS: HEMATOCRIT 35.6 % (37-47); MEAN CORPUSCULAR HGB 29.1 PG (27.0-31.0); MEAN CORPUSCULAR HGB CONC 33.6 G/DL (33.0-37.0); MEAN CORPUSCULAR VOLUME 86.7 FL (81.0-99.0); MEAN PLATELET VOLUME 9.2 FL (7.4-10.4); PLATELET COUNT 338 /CUMM (130-400); RED BLOOD CELL CT 4.11 /CUMM (4.20-5.40)
[2018-02-24 00:28] LABS: WHITE BLOOD CELL COUNT 11.5 /CUMM (4.8-10.8)
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
[2018-02-24 19:57] VITALS: BP 104/66
--- NOTE | 2018-02-24 23:07 | History & Physical ---
General Information and HPI History of Present Illness: 42F PMH T2DM, depression, had left ankle fracture with surgical repair with hardware 3 years ago, most of the hardware removed 2.[address] Velásquez in [place] due to chronic pain in the ankle, and per that orthopedist, misplacement of the hardware, recently discharged from [facility] after treatment for surgical site infection. She was discharged 2 days ago and went to her orthopedist, who removed the derrick, and wound subsequently dehisced. Steristrips were placed, and the patient was placed on Doxycycline. She found out from [facility] that her phone privileges with her 10 year old daughter were to be cut down and that the daughter would be put up for adoption. The patient then became extremely agitated and angry, getting kicked out of the [facility] she had [facility] staying in. She was sent to the ER with agitation, depression, and SI. She currently reports depression over the situation with her daughter. She has significant pain in her foot. There is yellow discharge coming from her foot wound without surrounding erythema. Afebrile, stable vitals. Patient reports intermittent sensations of fever and chills. She denies SI to me. Allergies/Medications Allergies: Coded Allergies: Iodinated Contrast- Oral and IV Dye (Severe, SHORT OF BREATH 02/18/18) erythromycin base (From ERYTHROCIN) (Intermediate, HIVES 02/18/18) ketorolac (From TORADOL) (Intermediate, FELT FUNNY 02/18/18) Antihistamines - Alkylamine (SOB, HALLUCINATIONS, DYSPNEA 02/18/18) Antihistamines - Ethanolamine (SOB, DYSPNEA, HALLUCINATIONS 02/18/18) Antihistamines - Ethylenediamine (SOB, DYSPNEA, HALLUCINATIONS 02/18/18) Antihistamines - Piperazine (SOB, DYSPNEA, HALLUCINATIONS 02/18/18) Antihistamines - Piperidine (SOB, DYSPNEA, HALLUCINATIONS 02/18/18) Penicillins (HIVES 02/18/18) Sulfa (Sulfonamide Antibiotics) (Intermediate, STOMACH UPSET 02/18/18) meperidine (From DEMEROL) (Intermediate, VOMITING 02/18/18) Home Med list Amitriptyline HCl 100 MG TABLET 1 TAB PO QHS MENTAL HEALTH/SLEEP (Reported) Clonazepam 0.5 MG TABLET 1 TAB PO BID ANXIETY (Reported) Cyclobenzaprine HCl 10 MG TABLET 1 TAB PO TID MUSCLE SPASMS (Reported) Dicyclomine HCl 20 MG TABLET 1 TAB PO Q6P PRN GI (Reported) Duloxetine HCl (Cymbalta) 60 MG CAPSULE.DR 1 CAP PO QPM MENTAL HEALTH/NERVE PAIN (Reported) Gabapentin 600 MG TABLET 1,200 MG PO QAM NERVE PAIN (Reported) Gabapentin 600 MG TABLET 2,400 MG PO QPM NERVE PAIN (Reported) Meclizine HCl 25 MG TABLET 1 TAB PO AD PRN DIZZINESS (Reported) Metformin HCl (Glucophage) 1,000 MG TABLET 1 TAB PO BID DM (Reported) Ondansetron (Zofran Odt) 8 MG TAB.RAPDIS 1 TAB PO Q6H PRN N/V (Reported) place on top of the tongue where it will dissolve, then swallow Pantoprazole Sodium 40 MG TABLET.DR 1 TAB PO BID GI (Reported) Ropinirole Hydrochloride (Requip) 0.5 MG TABLET 1 TAB PO QHS RLS (Reported) Zolpidem Tartrate 10 MG TABLET 1 TAB PO QHS SLEEP (Reported) Past History Travel History Traveled to [place] past 21 day No Medical History Neurological: migraine, vertigo EENT: allergies Cardiovascular: hypertension Respiratory: asthma Gastrointestinal: colitis, diverticulitis, GERD, irritable bowel syndrome Hepatic: NONE Renal: NONE Musculoskeletal: fibromyalgia, osteoarthritis, rheumatoid arthritis, sciatica Psychiatric: anxiety, depression, PTSD Endocrine: diabetes Blood Disorders: DVT Cancer(s): NONE PATTERN FITTER/Reproductive: endometriosis Other Medical Hx: Lyme History of MRSA: No History of VRE: No History of CDIFF: No Isolation History: Standard Surgical History Surgical History: hysterectomy, ORIF left ankle 3 yrs [employer] Past Family/Social History Family History Relations & Conditions if any Relation not specified for: *No pertinent family history Psychosocial History ETOH Use: denies use Illicit Drug Use: denies illicit drug use Review of Systems Review of Systems Constitutional: Reports: no symptoms. EENTM: Reports: no symptoms. Cardiovascular: Reports: no symptoms. Respiratory: Reports: no symptoms. GI: Reports: no symptoms. Genitourinary: Reports: no symptoms. Musculoskeletal: Reports: no symptoms. Skin: Reports: no symptoms. Neurological/Psychological: Reports: no symptoms. Hematologic/Endocrine: Reports: no symptoms. Immunologic/Allergic: Reports: no symptoms. All Other Systems: Reviewed and Negative Exam & Diagnostic Data Last 24 Hrs of Vital Signs/I&O Vital Signs Date Time Temp Pulse Resp B/P B/P Pulse O2 O2 Flow FiO2 Mean Ox Delivery Rate 02/24 1957 98.4 104 104/66 02/24 1902 99.1 104 18 102/52 96 Room Air 02/24 1434 98.0 84 20 128/68 98 Room Air 02/24 0949 98.0 99 20 124/70 98 Room Air 02/24 0608 97.8 68 20 123/72 97 02/24 0302 96.4 68 20 130/78 97 02/24 0019 97 Room Air 02/24 0018 97.9 105 18 122/79 97 Room Air Intake & Output 02/24 1600 02/24 0800 02/24 0000 Intake Total Output Total Balance Patient 72.575 kg Weight Weight Reported by Patient Measurement Method Physical Exam General Appearance Alert, Oriented X3, Cooperative, No Acute Distress Skin No Rashes HEENT Atraumatic, Mucous Membr. moist/pink Neck Supple Cardiovascular Regular Rate Lungs Clear to Auscultation Abdomen Soft, No Tenderness Neurological Exam Findings: Normal Gait, Normal Speech, Strength at 5/5 X4 Ext Cranial Nerves II through XII: Normal as tested Extremities No Clubbing, No Cyanosis, No Edema, Left foot surgical wound with clear/yellow discharge, no surrounding erythema, mild tenderness, full ROM, no lymphadenopathy Last 24 Hrs of Labs/Kenan: Laboratory Tests 02/24/18 0013: Anion Gap 13, Estimated GFR > 60, BUN/Creatinine Ratio 23.3, Glucose 317 H, Calcium 9.3, Total Bilirubin 0.2, AST 18, ALT 28, Alkaline Phosphatase 123, Total Protein 7.0, Albumin 3.9, Globulin 3.1, Albumin/Globulin Ratio 1.3, CBC w Diff MAN DIFF ORDERED, RBC 4.11 L, MCV 86.7, MCH 29.1, MCHC 33.6, RDW 15.0 H, MPV 9.2, Segmented Neutrophils 49, Lymphocytes 43, Monocytes 2, Eosinophils 6 H , Platelet Estimate ADEQUATE, Polychromasia 1+, Ovalocytes FEW, Stomatocytes FEW , Fld Total RBCs Counted 100, Serum Alcohol < 10.0 02/23/18 2346: Urine Opiates Screen 3631.00 H, Methadone Screen 100, Barbiturate Screen < 60, Ur Phencyclidine Scrn < 6.00, Amphetamines Screen < 100, U Benzodiazepines Scrn 158, Urine Cocaine Screen < 50, Urine Cannabis Screen < 5.00 Assessment/Plan Assessment: 42F PMH T2DM, depression, had left ankle fracture with surgical repair with hardware 3 years ago, most of the hardware removed 2.[address] Velásquez in [place] due to chronic pain in the ankle, and per that orthopedist, misplacement of the hardware, recently discharged from [facility] for surgical site infection, admitted to [facility] with depression and SI after finding out her daughter may be adopted against her will, with evidence of surgical site infection. Recommendations - Management of depression and SI by psychiatry - Obtain orthopedic consult - Clindamycin 300mg q8h - Oxycodone for pain - Consult wound care nurse for dressing changes - If fever, chills, change in wound discharge, transfer to medicine service - Ambulatory for DVT PPx - Continue home medications As Ranked By This Provider Problem List: 1. Wound infection after surgery 2. Cellulitis 3. Depression Qualifiers Depression Type: unspecified Qualified Code: F32.9 - Major depressive disorder, single episode, unspecified Miscellaneous Miscellaneous Documentation Attending Case Discussed With: Jayson Rivera MD Primary Care Physician: Patient Has No Primary Care Dr Patient sees these Specialists None Level of Patient Care: [facility]
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
[2018-02-25 08:07] VITALS: BP 113/67
--- NOTE | 2018-02-25 11:49 | IP INCIDENTAL NOTE PSYCH ---
Incidental Note Notation: I spoke with Dr. Teresa as dr. Christianested an Ortho follow up. Dr. Teresa indicated that that the patient was seen by a different ortho group and that I should call [facility] I spoke with BRYON Coronel who said that he saw the patient a week ago and that she did not seem to have an infection and that she should be following with whoever took the hardware out
--- NOTE | 2018-02-25 12:08 | Cons- Orthopedic ---
General Information and HPI Consulting Request Date of Consult: 02/25/18 Requested By: Juan C Avitia MD History of Present Illness: We received a phone call regarding this patient today from the medical staff. Was seen by myself 1 week ago. Patient is recent post-op patient of dr lew for hardware removal. She was recently seen by dr lew derrick were removed and had wound dehisence placed on doxycyline by him. Patient is approx 3 1/2 weeks removal of lateral hardware. MRI of ankle shows no osteomyelitis. Dr Lew is treating orthopedist for this patient and is aware of the recent wound issue and surgery. Medical staff should call Dr Lew at the center for foot and ankle surgery for treatment recommendations while patient is hospitalized. Local wound care with dressing changes daily con't with antibiotics. Patient should f/u with Dr Lew after d/c from hospital. Treatment plan discussed with Dr Burgess. Allergies/Medications Allergies: Coded Allergies: Iodinated Contrast- Oral and IV Dye (Severe, SHORT OF BREATH 02/18/18) erythromycin base (From ERYTHROCIN) (Intermediate, HIVES 02/18/18) ketorolac (From TORADOL) (Intermediate, FELT FUNNY 02/18/18) Antihistamines - Alkylamine (SOB, HALLUCINATIONS, DYSPNEA 02/18/18) Antihistamines - Ethanolamine (SOB, DYSPNEA, HALLUCINATIONS 02/18/18) Antihistamines - Ethylenediamine (SOB, DYSPNEA, HALLUCINATIONS 02/18/18) Antihistamines - Piperazine (SOB, DYSPNEA, HALLUCINATIONS 02/18/18) Antihistamines - Piperidine (SOB, DYSPNEA, HALLUCINATIONS 02/18/18) Penicillins (HIVES 02/18/18) Sulfa (Sulfonamide Antibiotics) (Intermediate, STOMACH UPSET 02/18/18) meperidine (From DEMEROL) (Intermediate, VOMITING 02/18/18) Home Med List: Amitriptyline HCl 100 MG TABLET 1 TAB PO QHS MENTAL HEALTH/SLEEP (Reported) Clonazepam 0.5 MG TABLET 1 TAB PO BID ANXIETY (Reported) Cyclobenzaprine HCl 10 MG TABLET 1 TAB PO TID MUSCLE SPASMS (Reported) Dicyclomine HCl 20 MG TABLET 1 TAB PO Q6P PRN GI (Reported) Duloxetine HCl (Cymbalta) 60 MG CAPSULE.DR 1 CAP PO QPM MENTAL HEALTH/NERVE PAIN (Reported) Gabapentin 600 MG TABLET 1,200 MG PO QAM NERVE PAIN (Reported) Gabapentin 600 MG TABLET 2,400 MG PO QPM NERVE PAIN (Reported) Meclizine HCl 25 MG TABLET 1 TAB PO AD PRN DIZZINESS (Reported) Metformin HCl (Glucophage) 1,000 MG TABLET 1 TAB PO BID DM (Reported) Ondansetron (Zofran Odt) 8 MG TAB.RAPDIS 1 TAB PO Q6H PRN N/V (Reported) place on top of the tongue where it will dissolve, then swallow Pantoprazole Sodium 40 MG TABLET.DR 1 TAB PO BID GI (Reported) Ropinirole Hydrochloride (Requip) 0.5 MG TABLET 1 TAB PO QHS RLS (Reported) Zolpidem Tartrate 10 MG TABLET 1 TAB PO QHS SLEEP (Reported) Past History Medical History Neurological: migraine, vertigo EENT: allergies Cardiovascular: hypertension Respiratory: asthma Gastrointestinal: colitis, diverticulitis, GERD, irritable bowel syndrome Hepatic: NONE Renal: NONE Musculoskeletal: fibromyalgia, osteoarthritis, rheumatoid arthritis, sciatica Psychiatric: anxiety, depression, PTSD Endocrine: diabetes Blood Disorders: DVT Cancer(s): NONE 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 Other Medical Hx: Lyme Surgical History Pertinent Surgical History: hysterectomy, 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 Family History Relations & Conditions If Any: Relation not specified for: *No pertinent family history Psychosocial History ETOH Use: denies use Illicit Drug Use: denies illicit drug use Exam & Diagnostic Data Vital Signs and I&O Vital Signs Date Time Temp Pulse Resp B/P B/P Pulse O2 O2 Flow FiO2 Mean Ox Delivery Rate 02/26 0807 98.4 90 113/67 02/24 195 98.4 104 104/66 02/24 1902 99.1 104 18 102/52 96 Room Air 02/24 1434 98.0 84 20 128/68 98 Room Air Intake & Output 02/25 1600 02/25 0802/25 0000 02/24 1600 02/24 0802/24 0000 Intake Total Output Total Balance Patient 160 lb 160 lb Weight Weight Reported by Patient Measurement Method Assessment/Plan Assessment/Plan s/p left ankle removal of lateral hardware with wound dehisence Consult Acknowledgment - Thank you for your consult request.
[2018-02-25 12:23] VITALS: BP 110/66
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
[2018-02-25 16:00] VITALS: BP 105/67
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
[2018-02-25 19:25] VITALS: BP 93/58
--- NOTE | 2018-02-26 07:55 | CP SOUTH PROGRESS NOTE PSYCH ---
Psych (Inpt) Progress Note Progress Note Treatment team (DONNA, RN, Group/Activities Therapist, Psychiatrist) discussed the pt.'s progress, inpatient treatment plan, and aftercare/discharge plans. Vital Signs Date Time Temp Pulse B/P 02/26 0757 96.4 98 113/68 02/25 1925 97.1 96 93/58 02/25 1600 96 105/67 Mental Status Examination Calm, cooperative, normal psychomotor activity, no abnormal or bizarre behaviors Normal speech, not pressured, affect was euthymic. Mood is depressed, denied feeling hopeless, denied thinking of suicide, Denied thinking of violence or homicide, Denied hallucination, denied feeling paranoid, there were no delusions during the interview. Patient did not have any difficulties with thought organization, she seems to have partial insight. Showed good judgment in hypothetical situations during the interview. It history suggests impaired judgment She was alert and oriented to time, place, and person. She did not seem to have difficulties with information processing during the interview. She did not seem to have difficulties with short-term memory during the interview. Assessment: 42-year-old white female who was admitted because of thoughts of suicide. The patient has been having significant psychosocial stressors in her life. Patient was never inpatient in a psychiatric unit. She did report that she had twice visited the emergency room for psychiatric reasons at [facility] as well as in [facility] and that she was evaluated and released and was not admitted. Diagnoses: Unspecified Depressive disorder Unspecified Anxiety disorder By history posttraumatic stress disorder Treatment Plan: Restart zolpidem but at 5 mg dose at bedtime Increase amitriptyline to 150 mg at bedtime Increase Cymbalta to 90 mg and move it to the morning Continue other medications unchanged I discussed the case with Dr. Cameron today, she reported that the signout from Dr. Rivera was to get orthopedics opinion on the matter orthopedics wrote a note but have not seen the patient. I will also consult infectious diseases on the care of the patient's ankle was never inpatient in a psychiatric unit. She did report that she had twice visited the emergency room for psychiatric reasons at [facility] as well as in [facility] and that she was evaluated and released and was not admitted. - Include all active medical diagnosis that require tx DSM 5 Diagnosis(es): Unspecified depressive disorder Unspecified anxiety disorder By history posttraumatic stress disorder - Initial Tx Plan for Active Psych & Medical Conditions Treatment Plan: Inpatient psychiatric care with safety checks every 15 minutes Continue medications as per her previous outpatient providers she reported that the last prescriber was at [facility]
[2018-02-26 07:57] VITALS: BP 113/68
[2018-02-26 12:13] VITALS: BP 106/73
[2018-02-26 15:54] VITALS: BP 117/67
--- NOTE | 2018-02-26 16:52 | SOCIAL WORKER PROG NOTE PSYCH ---
Social Work Progress Note Progress Note She denied SI/HI, no AH/VH. She rates depression 7/10(worst) and anxiety 7/10. She didn't sleep well last night. She is attending groups. She wants to return to [facility]. Wants to work things out with her b.f. He is in a [facility]. She wants to go to [facility]. Need to call [facility] look into this please. She wants to call [facility] to see next date for court ( needs #) - she has trespass charge. She has no one - no fam. meeting refused. She is upset about DCF - doesn't know the day she is allowed to call her daughter 10yo. Tries calling DCF they don't call back. She does not want to have another referral to [facility]. She had a CAN assessment today, called 211 and informed them (with my help later in day) that she is in hospital. She can call back for another CAN appt. in [facility] (per Dr. Wheeler), Pt ok with this - call 2 days prior to discharge. She stated she is hoping she can stay at [facility]. Please call [facility].
[2018-02-26 20:37] VITALS: BP 110/67
[2018-02-27 08:23] LABS: ABSOLUTE BASOPHIL COUNT 0 /CUMM (0.0-0.2); ABSOLUTE EOSINOPHIL COUNT 0.3 /CUMM (0.0-0.7); ABSOLUTE GRANULOCYTE CT 4.3 /CUMM (1.4-6.5); ABSOLUTE LYMPH COUNT 3.3 /CUMM (1.2-3.4); ABSOLUTE MONOCYTE COUNT 0.4 /CUMM (0.10-0.60); BASOPHIL % 0.4 % (0.0-2.0); EOSINOPHIL % 3.1 % (0-5); GRANULOCYTE % 51.4 % (42.2-75.2); HEMATOCRIT 33.4 % (37-47); MEAN CORPUSCULAR HGB 28.5 PG (27.0-31.0); MEAN CORPUSCULAR VOLUME 86.3 FL (81.0-99.0); MEAN PLATELET VOLUME 9.2 FL (7.4-10.4); PLATELET COUNT 276 /CUMM (130-400); RBC DISTRIBUTION WIDTH 15.2 % (11.5-14.5); RED BLOOD CELL CT 3.88 /CUMM (4.20-5.40); WHITE BLOOD CELL COUNT 8.3 /CUMM (4.8-10.8)
[2018-02-27 08:56] VITALS: BP 110/70
--- NOTE | 2018-02-27 12:15 | CP SOUTH PROGRESS NOTE PSYCH ---
Psych (Inpt) Progress Note Progress Note Include the following elements, when applicable: Involvement in the active treatment of the patient with behavioral observations of the patient and the patient's response to the treatment. Review of the ongoing treatment process in the context of the treatment plan. Indication of how multi-disciplinary staff members are carrying out the treatment plan. Plans for future interventions and recommendations for revision of the treatment plan. Liaison with other physicians/providers. Progress Note: Pt notes that she has had a difficult few days. She was disappointed that she was unable to speak with her daughter which made her agitated and intermittently suicidal. Now less so but continues to have fleeting passive SI. Denies more active SI. Recounted details of difficult relationship with partner as well as concerns that her daughter micah lbe put up for adoption. Current Medications Sig/Sushma Start time Last Medication Dose Route Stop Time Status Admin Acetaminophen 975 MG .STK-MED ONE 02/26 2129 DC PO 02/26 2130 Acetaminophen 975 MG Q4P PRN 02/23 2345 AC 02/26 PO 2130 Al Hydroxide/Mg 30 ML Q4-6 PRN PRN 02/24 1500 AC Hydroxide PO Amitriptyline HCl 150 MG AT BEDTIME 02/26 2100 AC 02/26 PO 2131 Clindamycin 300 MG Q8 02/24 2255 AC 02/27 PO 0714 Clonazepam 0.5 MG DAILY 02/27 09 AC 02/27 PO 03/06 0859 0944 Clonazepam 1 MG AT BEDTIME 02/24 2100 AC 02/26 PO 03/03 205 2130 Cyclobenzaprine HCl 10 MG TID 02/26 1400 AC 02/27 PO 0944 Cyclobenzaprine HCl 10 MG TID PRN 02/24 0000 DC 02/26 PO 02/26 1359 0814 Dicyclomine HCl 20 MG 4 TIMES/DAY PRN 02/24 0000 AC PO Duloxetine HCl 90 MG 0800 02/27 0800 AC 02/27 PO 0944 Gabapentin 2,400 MG QPM 02/24 2100 AC 02/26 PO 2131 Gabapentin 1,200 MG QAM 02/24 0900 AC 02/27 PO 0944 Lactobacillus 1 CAP BID 02/26 1200 AC 02/27 Acidophilus PO 0945 Magnesium Hydroxide 30 ML AT BEDTIME PRN 02/24 1500 AC PO Metformin HCl 1,000 MG BID 02/24 0900 AC 02/27 PO 0944 Omeprazole 40 MG BID 02/25 09 AC 02/27 PO 0945 Ondansetron HCl 4 MG Q4 HRS NEEDED PRN 02/25 1500 AC 02/26 PO 213 Oxycodone HCl 10 MG Q6-PRN PRN 02/27 1000 AC 02/27 PO 0952 Oxycodone HCl 10 MG .STK-MED ONE 02/26 2032 DC PO 02/26 203 Oxycodone HCl 10 MG .STK-MED ONE 02/26 1324 DC PO 02/26 1325 Oxycodone HCl 10 MG Q6-PRN PRN 02/26 1300 DC 02/26 PO 2033 Oxycodone/ 1 TAB Q6P PRN 02/25 0015 DC 02/26 Acetaminophen PO 0816 Ropinirole HCl 0.5 MG DAILY 02/27 09 AC 02/27 PO 45 Ropinirole HCl 1 MG AT BEDTIME 02/26 2100 AC 02/26 PO 213 Zolpidem Tartrate 5 MG AT BEDTIME 02/26 2100 AC 02/26 PO 2130 Laboratory Tests 02/27 0652 Hematology CBC w Diff NO MAN DIFF REQ WBC (4.8 - 10.8 /CUMM) 8.3 RBC (4.20 - 5.40 /CUMM) 3.88 L Hgb (12.0 - 16.0 G/DL) 11.1 L Hct (37 - 47 %) 33.4 L MCV (81.0 - 99.0 FL) 86.3 MCH (27.0 - 31.0 PG) 28.5 MCHC (33.0 - 37.0 G/DL) 33.0 RDW (11.5 - 14.5 %) 15.2 H Plt Count (130 - 400 /CUMM) 276 MPV (7.4 - 10.4 FL) 9.2 Gran % (42.2 - 75.2 %) 51.4 Lymphocytes % (20.5 - 51.1 %) 39.8 Monocytes % (1.7 - 9.3 %) 5.3 Eosinophils % (0 - 5 %) 3.1 Basophils % (0.0 - 2.0 %) 0.4 Absolute Granulocytes (1.4 - 6.5 /CUMM) 4.3 Absolute Lymphocytes (1.2 - 3.4 /CUMM) 3.3 Absolute Monocytes (0.10 - 0.60 /CUMM) 0.4 Absolute Eosinophils (0.0 - 0.7 /CUMM) 0.3 Absolute Basophils (0.0 - 0.2 /CUMM) 0 Vital Signs Date Time Temp Pulse Resp B/P B/P Pulse O2 O2 Flow FiO2 Mean Ox Delivery Rate 02/27 0856 97.0 98 110/70 02/26 2037 97.1 100 110/67 02/26 1554 104 117 MSE Appearance: as stated age Speech : nl rate, rhythm, volume and prosody Behavior: cooperative Motor: no psychomotor agitation or retardation Mood : blahh Affect : flat, non-labile, very irritable, appropriate, constricted Thought process: linear and goal directed Thought content : no delusions or paranoia Perceptions: denied AVHs, denied SI or HI Insight: poor Judgment: poor A/P:Pt with depression and SI in the setting of multiple psychosocial stressors. Continue current medication regimen Encourage integration into the milieu
[2018-02-27 12:30] VITALS: BP 109/62
[2018-02-27 16:02] VITALS: BP 113/75
[2018-02-27 19:57] VITALS: BP 105/67
[2018-02-28 07:46] VITALS: BP 124/74
--- NOTE | 2018-02-28 11:09 | CP SOUTH PROGRESS NOTE PSYCH ---
Psych (Inpt) Progress Note Progress Note Include the following elements, when applicable: Involvement in the active treatment of the patient with behavioral observations of the patient and the patient's response to the treatment. Review of the ongoing treatment process in the context of the treatment plan. Indication of how multi-disciplinary staff members are carrying out the treatment plan. Plans for future interventions and recommendations for revision of the treatment plan. Liaison with other physicians/providers. Progress Note: Pt notes that she is sleepy this morning as she took her pain meds early. She notes no significant change in her mood. Is very hopeful for call from her daughter this evening 730-800pm, who is in DCF custody. She denies SI or HI. Current Medications Sig/Sushma Start time Last Medication Dose Route Stop Time Status Admin Acetaminophen 975 MG .STK-MED ONE 02/28 0054 DC PO 02/28 0055 Acetaminophen 975 MG .STK-MED ONE 02/27 1230 DC PO 02/27 1231 Acetaminophen 975 MG Q4P PRN 02/23 2345 AC 02/28 PO 0054 Al Hydroxide/Mg 30 ML Q4-6 PRN PRN 02/24 1500 AC Hydroxide PO Amitriptyline HCl 150 MG AT BEDTIME 02/26 2100 AC 02/27 PO 2152 Clindamycin 300 MG Q8 02/24 2255 AC 02/28 PO 0633 Clonazepam 0.5 MG DAILY 02/27 0900 AC 02/28 PO 03/06 0859 0824 Clonazepam 1 MG AT BEDTIME 02/24 2100 AC 02/27 PO 03/03 2059 2151 Cyclobenzaprine HCl 10 MG TID 02/26 1400 AC 02/28 PO 0824 Dicyclomine HCl 20 MG 4 TIMES/DAY PRN 02/24 0000 AC PO Duloxetine HCl 90 MG 02/27 0800 AC 02/28 PO 0824 Gabapentin 2,400 MG QPM 02/24 2100 AC 02/27 PO 2152 Gabapentin 1,200 MG QAM 02/24 0900 AC 02/28 PO 0823 Lactobacillus 1 CAP BID 02/26 1200 AC 02/28 Acidophilus PO 0824 Magnesium Hydroxide 30 ML AT BEDTIME PRN 02/24 1500 AC PO Metformin HCl 1,000 MG BID 02/24 0900 AC 02/28 PO 0824 Omeprazole 40 MG BID 02/25 0900 AC 02/28 PO 0824 Ondansetron HCl 4 MG Q4 HRS NEEDED PRN 02/25 1500 AC 02/27 PO 215 Oxycodone HCl 10 MG Q6-PRN PRN 02/27 1000 AC 02/28 PO 06 Ropinirole HCl 0.5 MG DAILY 02/27 0900 AC 02/28 PO 08 Ropinirole HCl 1 MG AT BEDTIME 02/26 2100 AC 02/27 PO 215 Zolpidem Tartrate 5 MG AT BEDTIME 02/26 2100 AC 02/27 PO 215 Laboratory Tests 02/27 0652 Hematology CBC w Diff NO MAN DIFF REQ WBC (4.8 - 10.8 /CUMM) 8.3 RBC (4.20 - 5.40 /CUMM) 3.88 L Hgb (12.0 - 16.0 G/DL) 11.1 L Hct (37 - 47 %) 33.4 L MCV (81.0 - 99.0 FL) 86.3 MCH (27.0 - 31.0 PG) 28.5 MCHC (33.0 - 37.0 G/DL) 33.0 RDW (11.5 - 14.5 %) 15.2 H Plt Count (130 - 400 /CUMM) 276 MPV (7.4 - 10.4 FL) 9.2 Gran % (42.2 - 75.2 %) 51.4 Lymphocytes % (20.5 - 51.1 %) 39.8 Monocytes % (1.7 - 9.3 %) 5.3 Eosinophils % (0 - 5 %) 3.1 Basophils % (0.0 - 2.0 %) 0.4 Absolute Granulocytes (1.4 - 6.5 /CUMM) 4.3 Absolute Lymphocytes (1.2 - 3.4 /CUMM) 3.3 Absolute Monocytes (0.10 - 0.60 /CUMM) 0.4 Absolute Eosinophils (0.0 - 0.7 /CUMM) 0.3 Absolute Basophils (0.0 - 0.2 /CUMM) 0 Vital Signs Date Time Temp Pulse Resp B/P B/P Pulse O2 O2 Flow FiO2 Mean Ox Delivery Rate 02/28 746 96.6 96 124/74 02/277 97.3 100 105/67 02/27 1602 96 113/75 02/27 1230 103 109/62 MSE Appearance: as stated age Speech : nl rate, rhythm, volume and prosody Behavior: cooperative Motor: no psychomotor agitation or retardation Mood : you know, the same" Affect : flat, non-labile, very irritable, appropriate, constricted Thought process: linear and goal directed Thought content : no delusions or paranoia Perceptions: denied AVHs, denied SI or HI Insight: poor Judgment: poor A/P:Pt with depression and SI in the setting of multiple psychosocial stressors. Continue current medication regimen Order written for pt to have supervised phone call with daughter who is in DCF, if daugther calls Encourage integration into the milieu
[2018-02-28 15:43] VITALS: BP 105/69
[2018-02-28 20:04] VITALS: BP 104/74
[2018-03-01 07:49] VITALS: BP 103/69
--- NOTE | 2018-03-01 08:11 | CP SOUTH PROGRESS NOTE PSYCH ---
Psych (Inpt) Progress Note Progress Note I reviewed Dr. Beauchamp's notes for Thu and February 27 and 2017 The treatment team (DONNA, RN, Group/Activities Therapist, Psychiatrist) discussed the pt.'s progress, inpatient treatment plan, and aftercare/discharge plans. Vital Signs: Date Time Temp Pulse B/P 03/01 0749 96.7 100 103/69 02/29 2004 97.5 104 104/74 Mental Status Examination somatic focus, normal speech, not pressured, affect was euthymic. Mood is depressed, and she reported thoughts of suicide (she claims it is due to the approach of grandmother anniversay) Denied thinking of violence or homicide, denied hallucination, denied feeling paranoid, there were no delusions during the interview. Patient did not have any difficulties with thought organization, she seems to have partial insight. Showed good judgment in hypothetical situations during the interview. It history suggests impaired judgment She was alert and oriented to time, place, and person. She did not seem to have difficulties with information processing during the interview. No difficulties with short-term memory during the interview. Assessment: 42-year-old white female who was admitted because of thoughts of suicide. The patient has been having significant psychosocial stressors in her life. Patient was never inpatient in a psychiatric unit. She did report that she had twice visited the emergency room for psychiatric reasons at [facility] as well as in [facility] and that she was evaluated and released and was not admitted. Diagnoses: Unspecified Depressive disorder Unspecified Anxiety disorder By history posttraumatic stress disorder Treatment Plan: Continue zolpidem 5 mg dose at bedtime amitriptyline 150 mg at bedtime Cymbalta 90 mg and move it to the morning Continue other medications unchanged note but have not seen the patient. I will also consult infectious diseases on the care of the patient's ankle
[2018-03-01 12:28] VITALS: BP 123/66
--- NOTE | 2018-03-01 13:50 | SOCIAL WORKER PROG NOTE PSYCH ---
Social Work Progress Note Progress Note Pt seems to have many somatic coplaints, appears to not be motivated to discharge from the hospital, is unsure where shw will go. Pt
[2018-03-01 16:06] VITALS: BP 113/74
[2018-03-01 20:15] VITALS: BP 125/73
[2018-03-02 07:37] VITALS: BP 96/68
[2018-03-02 12:19] VITALS: BP 110/71
--- NOTE | 2018-03-02 13:38 | CP SOUTH PROGRESS NOTE PSYCH ---
Psych (Inpt) Progress Note Progress Note The treatment team (DONNA, RN, Group/Activities Therapist, Psychiatrist) discussed the pt.'s progress, inpatient treatment plan, and aftercare/discharge plans. Vital Signs: Mental Status Examination: pt. continues to be somatic focused and medication focused, normal speech, not pressured, affect was euthymic, mood is depressed, and she reported thoughts of suicide (she claims it is due to the approach of grandmother anniversay). Denied thinking of violence or homicide, denied hallucination, denied feeling paranoid, there were no delusions during the interview. Patient did not have any difficulties with thought organization, she seems to have partial insight. She was alert and oriented to time, place, and person. She did not seem to have difficulties with information processing during the interview. Assessment: 42-year-old white female who was admitted because of thoughts of suicide. The patient has been having significant psychosocial stressors in her life. Patient was never inpatient in a psychiatric unit. She did report that she had twice visited the emergency room for psychiatric reasons at [facility] as well as in [facility] and that she was evaluated and released and was not admitted. Diagnoses: Unspecified Depressive Disorder Unspecified Anxiety Disorder By history PTSD Treatment Plan Update: Add haloperidol at bedtime (she found it helpful when she took in the ED) Increase bedtime klonopin to 1.5 mg at bedtime Continue other medications unchanged Cymbalta 90 mg and move it to the morning Continue other medications unchanged
--- NOTE | 2018-03-02 14:50 | SOCIAL WORKER PROG NOTE PSYCH ---
Social Work Progress Note Progress Note URIEL LUI [id number] 1975 URIEL LUI [id number] Pended Authorization # Client Authorization # Type of Request [id number] CONCURRENT Date of Admission/ Start of Services Requested From Submission Date 02/24/2018 03/02/2018 03/02/2018
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
[2018-03-02 20:21] VITALS: BP 118/72
[2018-03-03 08:17] VITALS: BP 101/70
--- NOTE | 2018-03-03 09:13 | CP SOUTH PROGRESS NOTE PSYCH ---
Psych (Inpt) Progress Note Progress Note The treatment team (DONNA, RN, Group/Activities Therapist, Psychiatrist) discussed the pt.'s progress, inpatient treatment plan, and aftercare/discharge plans. Mental Status Examination: Pt. was irritable, used profanities (not directed at me), somatic/medication- focused, normal speech, not pressured, mood is depressed, she reported on-off thoughts of suicide, denied thinking of violence or homicide, denied hallucination, denied feeling paranoid, there were no delusions during the interview. Patient did not have any difficulties with thought organization, She was alert and oriented to time, place, and person. Assessment: 42-year-old white female who was admitted because of thoughts of suicide. She did report that she had twice visited the emergency room for psychiatric reasons at [facility] as well as in [facility] and that she was evaluated and released and was not admitted. 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
[2018-03-03 11:51] VITALS: BP 99/69
[2018-03-03 16:12] VITALS: BP 109/72
--- NOTE | 2018-03-03 18:29 | SOCIAL WORKER PROG NOTE PSYCH ---
Social Work Progress Note Progress Note This inspector automatic typewriter spoke with Kalee at [facility] ([facility]) at 11:15am. She requested that the patient call her to provide verbal permission for her to speak with this inspector automatic typewriter. Upon the patient doing so, Kalee informed this inspector automatic typewriter at 12:10pm that the patient would need to complete a new phone assessment. This was relayed to the patient and patient will call. This inspector automatic typewriter met with the patient who described her mood as "not good" due to stressors such as homelessness and DCF involvement. She reported passive SI and denied having any plan. She denied AH/VH/HI. She discussed feeling stressed by other patients on the unit. We discussed strategies that she could utilize to manage this stress such as talking to staff. This inspector automatic typewriter assisted patient in exploring housing options. She requested a referral to [facility]. She denied [facility]. This inspector automatic typewriter recieved call from Didi Markham ([phone]) that an intake appointment could be scheduled for the patient for IOP on Thursday03/05/18. This inspector automatic typewriter was instructed to call [facility] at [phone] to schedule to appointment.
[2018-03-03 20:00] VITALS: BP 106/56
[2018-03-04 07:49] VITALS: BP 103/70
[2018-03-04 12:47] VITALS: BP 100/64
--- NOTE | 2018-03-04 14:18 | CP SOUTH PROGRESS NOTE PSYCH ---
Psych (Inpt) Progress Note Progress Note The treatment team (DONNA, RN, Group/Activities Therapist, Psychiatrist) discussed the pt.'s progress, inpatient treatment plan, and aftercare/discharge plans. Mental Status Examination: Pt. was calm today was not irritable, did not use profanities, remains focused on her ankle I called Dr. Hurtado (he ortho doctor) and he said she can walk in tomorrow before 1 PM or Thursday medication-focused (wants Ambien back because she claims Prazosin blurred her vision) talkative with mild pressure, mood is depressed, she reported on-off thoughts of suicide, denied them today denied thinking of violence or homicide, denied hallucination, denied feeling paranoid, there were no delusions during the interview. Patient did not have any difficulties with thought organization, She was alert and oriented to time, place, and person. Assessment: 42-year-old white female who was admitted because she claimed she was having thoughts of suicide. She did report that she had twice visited the emergency room for psychiatric reasons at [facility] as well as in [facility] and that she was evaluated and released and was not admitted. 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
[2018-03-04 19:48] VITALS: BP 109/69
[2018-03-05] MEDS ORDERED: GABAPENTIN600 M1 PO ×2 (07:42)
[2018-03-05] MEDS ORDERED: OXYCODONE HCL5 M1 PO (07:42)
[2018-03-05] MEDS ORDERED: ZOLPIDEM TARTRA10 M1 PO (07:42)
[2018-03-05] MEDS ORDERED: CHLORPROMAZINE25 M2 PO (07:42)
[2018-03-05] MEDS ORDERED: ZOFRAN ODT8 M1 PO (07:42)
[2018-03-05] MEDS ORDERED: HALOPERIDOL5 MG PO ×2 (07:42→07:57)
[2018-03-05] MEDS ORDERED: GLUCOPHAGE1000 M1 PO (07:42)
[2018-03-05] MEDS ORDERED: PANTOPRAZOLE SO40 M1 PO (07:42)
[2018-03-05] MEDS ORDERED: CYCLOBENZAPRINE10 M1 PO (07:42)
--- NOTE | 2018-03-05 07:49 | CP SOUTH PROGRESS NOTE PSYCH ---
Psych (Inpt) Progress Note Progress Note The treatment team (DONNA, RN, Group/Activities Therapist, Psychiatrist) discussed the pt.'s progress, inpatient treatment plan, and aftercare/discharge plans. Vital Signs Date Time Temp Pulse B/P 03/05 0758 97.8 100 121/89 03/05 0746 98.7 03/04 1948 98.7 96 109/69 Mental Status Examination: calm/not irritable, pleasant, normal speech today/not pressured mood is better and she seemed in better spirits/more animated affect denied thoughts of suicide, denied thinking of violence or homicide, denied hallucination, denied feeling paranoid, there were no delusions during the interview. Patient did not have any difficulties with thought organization, She was alert and oriented to time, place, and person. Assessment: 42-year-old white female who was admitted because she claimed she was having thoughts of suicide. She did report that she had twice visited the emergency room for psychiatric reasons at [facility] as well as in [facility] and that she was evaluated and released and was not admitted. Since her admission on 02/24/2018, she has been comfortable on the unit, complains about staff and patients' conduct, somatic-focused and entitled, she has used suicide statement as a means to extend her stay (and to avoid discharge to a penitentiary) Her identified risk factors are: 1) Recent statements about suicide 2) Homelessness 3) Lack of family and/or social supports Identified protective and Risk-Mitigating factors: 1) Pt. 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
--- NOTE | 2018-03-05 07:50 | Patient Discharge Instructions ---
Psych Discharge Inst General Discharge Information Reason for Admission: thoughts of suicide Psy Discharge Primary Diag+ Unspecified Depressive DO Psy Discharge Secondary Diag+ Unspecified Anxiety DO Summary Tests/Major Procedures see H&P Studies Pending at DC: None Patient Instructions Contact Information Your Psychiatrist on [facility] was Juan C Avitia MD * If you are experiencing an emergency related to this hospitalization, please call [phone] to contact the treating psychiatrist or the psychiatrist-on- call. * To Request a copy of your medical records, please contact the Medical Records Department at [phone]. * To request results of studies pending at the time of discharge, please call [phone]. * Continue your Medications until directed to stop by your Healthcare provider. General Medication Information Please continue to take your new medications and your continued home medications , unless otherwise indicated on your discharge medication list, or unless directed by your MD or [facility] to stop them. Special Instructions Diet Diabetic Activity As Tolerated - Tobacco Use Treatment Offered Post DC Medications Offered: Not Applicable Post DC Tobacco Treatment Plan: Not Applicable - EtOH/Drug Use D/O Treatment Offered Post DC Medications Offered: NA-No EtOH/Drug Use D/O Post DC EtOH/SubAbuse TX Plan: NA-No EtOH/Drug Use D/O Metabolic Screening Patient on a neuroleptic(s) . Enter below results for Hemoglobin A1C, and lipid panel if obtained during the last 365 days. BMI: 31.200 Blood Pressure: 109/69 Laboratory Results From [facility] (If applicable): Advance Directives Does the Patient have Medical Advance Directives No/Refused further info Does Pt have Psychiatric Advance Directives? No/Refused further info Does Patient have a Designated Surrogate Decision Maker: No Information About Psychiatric Advance Directives Provided? Refused Discharge Plan Post Hospital Treatment Plan: [facility]
[2018-03-05] MEDS ORDERED: KLONOPIN0.5 M1 PO (07:51)
[2018-03-05] MEDS ORDERED: DULOXETINE HCL30 MG PO (07:54)
[2018-03-05] MEDS ORDERED: AMITRIPTYLINE150 M2 PO (07:54)
[2018-03-05] MEDS ORDERED: REQUIP0.5 M1 PO (07:55)
[2018-03-05 07:58] VITALS: BP 121/89
--- NOTE | 2018-03-05 13:52 | DISCHARGE SUMMARY REPORT-PSYCH ---
Visit Information Visit Dates/Diagnosis' Admission Date: 02/24/18 Discharge Date: 03/05/18 Reason for Admission: thoughts of suicide Psy Discharge Primary Diag: Unspecified Depressive DO Psy Discharge Secondary Diag: Unspecified Anxiety DO Hospital Course Course Allergies: Coded Allergies: Iodinated Contrast- Oral and IV Dye (Severe, SHORT OF BREATH 02/18/18) erythromycin base (From ERYTHROCIN) (Intermediate, HIVES 02/18/18) ketorolac (From TORADOL) (Intermediate, FELT FUNNY 02/18/18) Antihistamines - Alkylamine (SOB, HALLUCINATIONS, DYSPNEA 02/18/18) Antihistamines - Ethanolamine (SOB, DYSPNEA, HALLUCINATIONS 02/18/18) Antihistamines - Ethylenediamine (SOB, DYSPNEA, HALLUCINATIONS 02/18/18) Antihistamines - Piperazine (SOB, DYSPNEA, HALLUCINATIONS 02/18/18) Antihistamines - Piperidine (SOB, DYSPNEA, HALLUCINATIONS 02/18/18) Penicillins (HIVES 02/18/18) Sulfa (Sulfonamide Antibiotics) (Intermediate, STOMACH UPSET 02/18/18) meperidine (From DEMEROL) (Intermediate, VOMITING 02/18/18) Hospital Course/TX Response: 02/25/2018: Initial impression and Plan: 42-year-old white female who was admitted because of thoughts of suicide. The patient has been having significant psychosocial stressors in her life. Patient was never inpatient in a psychiatric unit. She did report that she had twice visited the emergency room for psychiatric reasons at [facility] as well as in [facility] and that she was evaluated and released and was not admitted. DSM 5 Diagnosis(es): Unspecified depressive disorder Unspecified anxiety disorder By history posttraumatic stress disorder Initial treatment Plan: Inpatient psychiatric care with safety checks every 15 minutes Continue medications as per her previous outpatient providers she reported that the last prescriber was at [facility]. 02/26/2018: Restart zolpidem but at 5 mg dose at bedtime Increase amitriptyline to 150 mg at bedtime Increase Cymbalta to 90 mg and move it to the morning Continue other medications unchanged I discussed the case with Dr. Cameron today, she reported that the signout from Dr. Rivera was to get orthopedics opinion on the matter orthopedics wrote a note but have not seen the patient. I will also consult infectious diseases on the care of the patient's ankle. 02/27/2018: Dr. Beauchamp's A/P: Pt with depression and SI in the setting of multiple psychosocial stressors. Continue current medication regimen Encourage integration into the milieu 02/28/2018: Dr. Beauchamp's A/P: Continue current medication regimen Order written for pt to have supervised phone call with daughter who is in [place], if daugther calls Encourage integration into the milieu 03/01/2018: Continue zolpidem 5 mg dose at bedtime amitriptyline 150 mg at bedtime Cymbalta 90 mg and move it to the morning Continue other medications unchanged 03/02/2018: Add haloperidol at bedtime (she found it helpful when she took in the ED) Increase bedtime klonopin to 1.5 mg at bedtime 03/03/2018: D/C Zolpidem Start Prazosin 2 mg at bedtime 03/04/2018: Mental Status Examination: calm/not irritable, pleasant, normal speech today/not pressured mood is better and she seemed in better spirits/more animated affect denied thoughts of suicide, denied thinking of violence or homicide, denied hallucination, denied feeling paranoid, there were no delusions during the interview. Patient did not have any difficulties with thought organization, She was alert and oriented to time, place, and person. Assessment: 42-year-old white female who was admitted because she claimed she was having thoughts of suicide. She did report that she had twice visited the emergency room for psychiatric reasons at [facility] as well as in [facility] and that she was evaluated and released and was not admitted. Since her admission on 02/24/2018, she has been comfortable on the unit, complains about staff and patients' conduct, somatic-focused and entitled, she has used suicide statement as a means to extend her stay (and to avoid discharge to a penitentiary) Her identified risk factors are: 1) Recent statements about suicide 2) Homelessness 3) Lack of family and/or social supports Identified protective and Risk-Mitigating factors: 1) Pt. 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 Metabolic Screening Not Applicable, patient is only on a PRN neurolptic Discharge Instructions General Discharge Information Multiple Neuroleptics: Not Applicable Discharge Diet Diabetic Discharge Activity As Tolerated DC Disposition: CAN assessment/penitentiary Referrals Ordered Referrals Provider Referral 03/08/18 For Groups: [Sri] [address] IOP Intake appointment: 03/10/18, at 8:45am Provider Referral For Groups: [Yvonne Painting - case management [place] [phone] Please contact Garima at the number above to schedule an appointment. Prescriptions Stop taking the following medications: Clonazepam (Clonazepam) 0.5 MG TABLET ORAL TWICE DAILY Ropinirole Hydrochloride (Requip) 0.5 MG TABLET ORAL TAKE AT BEDTIME Amitriptyline HCl (Amitriptyline HCl) 100 MG TABLET ORAL TAKE AT BEDTIME Duloxetine HCl (Cymbalta) 60 MG CAPSULE.DR ORAL Every night Continue taking these medications: Meclizine HCl (Meclizine HCl) 25 MG TABLET 1 Tablet ORAL As Directed as needed for DIZZINESS Comments: NOT GIVEN Dicyclomine HCl (Dicyclomine HCl) 20 MG TABLET 1 Tablet ORAL EVERY SIX HOURS NEEDED as needed for GI Comments: Last Taken:03/01 Time:1999 Cyclobenzaprine HCl (Cyclobenzaprine HCl) 10 MG TABLET 1 Tablet ORAL THREE TIMES DAILY Qty = 45 Comments: Last Taken:03/05/18 Time:0745 This prescription has been renewed Gabapentin (Gabapentin) 600 MG TABLET 1,200 Milligram ORAL Every Morning Qty = 30 Comments: Last Taken:03/05/18 Time:0800 This prescription has been renewed Gabapentin (Gabapentin) 600 MG TABLET 2,400 Milligram ORAL Every night Qty = 60 Comments: Last Taken:03/04/18 Time:2200 This prescription has been renewed Zolpidem Tartrate (Zolpidem Tartrate) 10 MG TABLET 1 Tablet ORAL TAKE AT BEDTIME Qty = 15 Comments: Last Taken:03/04/18 Time:2100 This prescription has been renewed Ondansetron (Zofran Odt) 8 MG TAB.RAPDIS 1 Tablet ORAL Q6H as needed for N/V Qty = 60 Instructions: place on top of the tongue where it will dissolve, then swallow Comments: Last Taken:03/03/18 Time:0800 This prescription has been renewed Pantoprazole Sodium (Pantoprazole Sodium) 40 MG TABLET.DR 1 Tablet ORAL TWICE DAILY Qty = 30 Comments: Last Taken:03/05/18 Time:0800 This prescription has been renewed Metformin HCl (Glucophage) 1,000 MG TABLET 1 Tablet ORAL TWICE DAILY Qty = 60 Comments: Last Taken:03/05/18 Time:0800 This prescription has been renewed Start taking the following new medications: Haloperidol (Haloperidol) 5 MG TABLET 5 Milligram ORAL AT BEDTIME as needed for as needed for agitation Qty = 15 No Refills Comments: Last Taken:03/04/18 Time:2100 Oxycodone HCl (Oxycodone HCl) 5 MG TABLET 10 Milligram ORAL EVERY 6 HOURS NEEDED as needed for ankle/wound pain Qty = 60 No Refills Comments: Last Taken:03/05/18 Time:0630 Chlorpromazine HCl (Chlorpromazine HCl) 25 MG TABLET 50 Milligram ORAL EVERY 4 HOURS NEEDED as needed for ANXIETY Qty = 60 No Refills Comments: Last Taken:03/04/18 Time:2000 Clonazepam (Klonopin) 0.5 MG TABLET 1 Tablet ORAL SEE INSTRUCTIONS Qty = 60 No Refills Instructions: 1 tab PO QAM and 3 tabs PO QHS Comments: Last Taken:03/05/18 Time:0800 Amitriptyline HCl (Amitriptyline HCl) 150 MG TABLET 1 Tablet ORAL Every night Qty = 30 No Refills Comments: Last Taken:03/04/18 Time:2130 Duloxetine HCl (Duloxetine HCl) 30 MG CAPSULE.DR 3 Capsule ORAL DAILY Qty = 45 No Refills Comments: Last Taken:03/05/18 Time:0730 Ropinirole Hydrochloride (Requip) 0.5 MG TABLET 1 Tablet ORAL SEE INSTRUCTIONS Qty = 45 No Refills Instructions: 1 tab in AM and 2 tabs QHS PO Comments: Last Taken:03/05/18 Time:0800 Studies Pending at Discharge None Copies To: [facility]
--- NOTE | 2018-03-05 18:13 | SOCIAL WORKER PROG NOTE PSYCH ---
Social Work Progress Note Progress Note This literary writer met with patient. She stated that she will stay with her uncle temporarily while seeking alternate housing. she stated that she plans to follow up with [facility] and was informed that this literary writer received a vm from [facility] stating that they recevied the referral however do not have any female beds at this time. Patient confirmed that she has their phone number in order to contact them. Patient agreed to attend the IOP intake at [facility] on 02/28/18. She will call Garima, her case resource manager to scheduled an appointment. Patient was provided with Garima's phone number. We called [facility] together and spoke with Abe (at 10:20am), however, they stated that they require a form to be completed by [facility] in order for the patient to utilize them from her uncle's home to [facility] due to the distance. Patient stated that she would like to keep the appointment and will identify alternate transportation until she is able to utilize [facility]. Patient will also contact [facility] after discharge to request bus passes. As this literary writer had previously called Didi at [facility] this morning inquiring about an sooner intake appointment, this literary writer and patient called Didi ([phone]) stating that she would keep the appointment on 03/10/18 in order to have time to secure transportation. This was left on Did[facility]'s vm with this literary writer's call back number if needed. Patient stated that she was not interested in following up with [facility] and did not want their phone numbers. She will also call [facility] daily and states that she is on their waiting list. Patient confirmed that the has the numbers for [facility], [facility] and [facility]. Patient described her mood as "good" and denied SI/HI/AH/VH. She identified a safety plan in which she would "talk to my uncle, call 211, call mobile crisis and use the crisis numbers and warm line numbers." Patient stated that she felt safe discharging today. She stated that she planned on going to her "ankle doctor" and will call her primary care doctor to schedule an appointment as well. Patient disclosed that her uncle has guns in the home however she does not have access to them. Patient signed an BRYCE for her uncle (Alexander Tabares). We called him together at 10:20am. He stated that he was aware of the reason for her hospitalization, confirmed that she can stay with him while exploring other housing and was informed of the discharge plans. He did not have any safety concerns. He confirmed that he has guns and states that they are locked and not accessible to the patient. He was informed by the patient that she has a ride from the hospital and will contact him when she leaves. Faxed Referral(s) Referred To: [facility] Documents sent: Health Summary Faxed to: [facility] attn: Admissions Fax #: [phone] Faxed by: Domo Matias LCSW Date faxed: 03/05/18 Time Faxed: [phone]
--- NOTE | 2018-03-05 18:32 | SOCIAL WORKER PROG NOTE PSYCH ---
Social Work Progress Note Progress Note This promotion writer met with patient. She stated that she has scheduled a CAN assessment with [facility]. We called the emergency jail on [address] in [place] and learned that they are a men's only jail. They were unable to provide any additional resources. As patient will not discharge today, she requested that the intake appointment with Keith is rescheduled for next week. Crisis and Respite referral was made to [place] (she refused a referral to [place]) and to [facility]. She stated that she will continue to call [facility] daily. She denied HI/hallucinations. She reported "on and off" SI with no plan and states that she feels safe.
== END 2018-03-05 10:49 | DRG 754 ==
LOC: ERH 22:56 → CP SOUTH 02-24 14:37 → ERHI 02-24 14:37 → ENTRNSPT 02-24 19:37 → EDTRNSPTSTS 02-24 19:39 → EDTRNSPT 02-24 19:39 → CMPTRNSPT 02-24 19:46 → CP SOUTH 02-24 19:47 → ENRESERV 02-24 23:59 → CP SOUTH 02-25 16:03
PROVIDERS: Pediatrics; Psychiatry & Neurology Psychiatry
DX: F32.9 Major depressive disorder, single episode, unspecified (principal); F41.9 Anxiety disorder, unspecified
CPT/HCPCS: 36415; 80307; 96372; G0480; J1630; J3101